=== PATIENT | male | born 1945 | race Caucasian/White ===

== ENCOUNTER 2016-12-23 11:35 | Inpatient (IN) | payer MEDICARE, OTHER, BC ==
[2016-12-23] MEDS ORDERED: Sodium Chloride 0.9% 500 ML IV ONE (12:02)
[2016-12-23] MEDS ORDERED: HYDROmorphone 0.5 MG/0.5 ML Syringe IVPUSH ONE ×2 (12:02→13:02)
--- NOTE | 2016-12-23 12:09 | EDM.PDOC ---
ED HPI GENERAL MEDICAL PROBLEM - General Chief Complaint: Lower Extremity Injury/Pain Stated Complaint: [facility] Time Seen by Provider: 12/23/16 11:40 Source of Information: Reports: Patient, RN Notes Reviewed - History of Present Illness INITIAL COMMENTS - FREE TEXT/NARRATIVE: 71-year-old gentleman has been transferred here from [facility] for evaluation and treatment of fractured right hip. He does have history of "drop foot" left lower extremity. He states the foot caught on some carpet and he fell landing on his right hip and fracturing his right hip. X-rays at the [facility] did show right femoral neck fracture. He does have history of COPD. He does continue to smoke. He does have some history of degenerative spine disease and does have chronic low back pain. He denies history for known high blood pressure, diabetes or coronary artery disease. He was given some morphine for the pain prior to transport. That is wearing off. He is starting to have more pain primarily in the right groin area. The pain is much worse with any motion of the right lower extremity. Treatments FLIGHT DATA TECHNICIAN: Reports: IV/IO, Other (see below) Other Treatments FLIGHT DATA TECHNICIAN: morphine, zofran right hip Pain Score (Numeric/FACES): 8 - Related Data Allergies Allergy/AdvReac Type Severity Reaction Status Date / Time nitrofurantoin Allergy Rash Verified 12/23/16 11:46 [From Macrobid] gabapentin AdvReac Disorientat Verified 12/24/16 07:17 ion Home Meds: Home Meds Acetaminophen [Tylenol Extra Strength] 2 tab PO DAILY PRN 12/23/16 [History] Albuterol [Ventolin HFA] 2 puff INH QID PRN 12/23/16 [History] Aspirin 2 tab PO DAILY 12/23/16 [History] Calcium Carbonate/Vitamin D3 [Calcium 600 + Vit D 200] 2 cap PO DAILY 12/23/16 [ History] DULoxetine HCl [Cymbalta] 90 mg PO DAILY 12/23/16 [History] Hydrocort/Neomycin/Polymyxin B [Cortisporin Otic Soln] 3 drop EYEBOTH TID PRN [History] Magnesium Oxide 500 mg PO DAILY 12/23/16 [History] Multivitamin [Klt-Geahvm-Mvggs] 1 tab PO DAILY 12/23/16 [History] Naproxen Sodium [Aleve] 2 tab PO DAILY PRN 12/23/16 [History] Silver Sulfadiazine [Silvadene 1% Cream 20 GM] 1 applic TOP BID 12/23/16 [ History] Simvastatin [Zocor] 20 mg PO DAILY 12/23/16 [History] Spironolactone [Aldactone] 1 tab PO DAILY 12/23/16 [History] Tamsulosin HCl 1 cap PO DAILY 12/23/16 [History] Triamcinolone Acetonide [Triamcinolone Acetonide 0.1% Crm] 1 applic TOP BID PRN 12/23/16 [History] Umeclidinium Brm/Vilanterol Tr [Anoro Ellipta 62.5-25 Mcg INH] 1 puff INH DAILY 12/23/16 [History] oxyCODONE 1 tab PO ASDIRECTED 12/23/16 [History] traMADol HCl [Tramadol HCl ER] 300 mg PO BEDTIME 12/23/16 [History] Past Medical History HEENT History: Reports: Impaired Vision Respiratory History: Reports: COPD Musculoskeletal History: Reports: Back Pain, Chronic, Osteoarthritis, Osteoporosis - Past Surgical History Musculoskeletal Surgical History: Reports: Other (See Below) Other Musculoskeletal Surgeries/Procedures:: back surgeries, "lazy foot" Social & Family History - Family History Family Medical History: Noncontributory - Tobacco Use Smoking Status *Q: Current Every Day Smoker Years of Tobacco use: 45 Packs/Tins Daily: 1.5 - Caffeine Use Caffeine Use: Reports: Coffee - Recreational Drug Use Recreational Drug Use: No Review of Systems - Review of Systems Review Of Systems: See Below Constitutional: Reports: No Symptoms Eyes: Reports: No Symptoms Mouth/Throat: Reports: No Symptoms Respiratory: Reports: Cough (Chronic). Denies: Shortness of Breath, Wheezing, Pleuritic Chest Pain Cardiovascular: Denies: Chest Pain GI/Abdominal: Denies: Abdominal Pain, Nausea Musculoskeletal: Reports: Joint Pain (Right hip) Skin: Reports: No Symptoms Neurological: Denies: Numbness, Tingling, Weakness ED EXAM, GENERAL - Physical Exam Exam: See Below General Appearance: Alert, Mild Distress Eye Exam: Bilateral Eye: PERRL Throat/Mouth: Normal Inspection, Normal Oropharynx Head: Atraumatic. No: Facial Swelling Neck: Supple, Full Range of Motion Respiratory/Chest: No Respiratory Distress, Lungs Clear, Normal Breath Sounds Cardiovascular: Regular Rate, Rhythm GI/Abdominal: Soft, Non-Tender Back Exam: No: CVA Tenderness (L), CVA Tenderness (R) Extremities: Other (He does have mild tenderness of the right lateral hip, pelvis is nontender, his leg does show some mild rotation, is careful not to be moving leg). No: Pedal Edema Neurological: Alert, Oriented, No Motor/Sensory Deficits Skin Exam: Warm, Dry, Other (Distal extremities do show some signs of stasis dermatitis) Course - Vital Signs Last Recorded V/S: Last Vital Signs Temp 97.5 F 12/25/16 03:49 Pulse 79 12/24/16 10:31 Resp 14 12/25/16 06:52 BP 123/63 12/25/16 03:49 Pulse Ox 97 12/25/16 03:49 - Orders/Labs/Meds Orders: Medication Orders Albuterol (Proventil Hfa) 0 gm INH QID PRN PRN Reason: Dyspnea Last Admin: 12/24/16 06:46 Dose: 2 puff Admin: 12/23/16 21:09 Dose: 2 puff Albuterol/Ipratropium (Duoneb 3.0-0.5 Mg/3 Ml) 2.5 ml NEB QID PRN PRN Reason: Shortness of Breath Aspirin (Ecotrin) 325 mg PO BID [facility] Last Admin: 12/24/16 20:19 Dose: 325 mg Admin: 12/24/16 10:37 Dose: 325 mg Bisacodyl (Dulcolax) 5 mg PO DAILY PRN PRN Reason: Constipation Docusate Sodium (Colace) 100 mg PO BID [facility] Last Admin: 12/24/16 20:19 Dose: 100 mg Admin: 12/24/16 10:31 Dose: Duloxetine HCl (Cymbalta) 90 mg PO DAILY [facility] Last Admin: 12/24/16 10:30 Dose: 90 mg Famotidine (Pepcid) 20 mg PO BID [facility] Last Admin: 12/24/16 20:19 Dose: 20 mg Admin: 12/24/16 10:31 Dose: Hydromorphone HCl (Dilaudid) 1 mg IVPUSH Q4H PRN PRN Reason: Pain (severe 7-10) Last Admin: 12/23/16 20:56 Dose: 1 mg Admin: 12/23/16 16:55 Dose: 1 mg Cefazolin Sodium/Dextrose 2 gm (/ Premix) 50 mls @ 100 mls/hr IV Q8H [facility] Stop: 12/25/16 07:29 Last Admin: 12/25/16 06:06 Dose: 100 mls/hr Infusion: 12/25/16 00:21 Dose: 100 mls/hr Admin: 12/24/16 23:51 Dose: 100 mls/hr Infusion: 12/24/16 15:17 Dose: 100 mls/hr Admin: 12/24/16 14:47 Dose: 100 mls/hr Magnesium Hydroxide (Milk Of Magnesia) 30 ml PO BID PRN PRN Reason: Constipation Miscellaneous Information (Remove Patch) 0 ea TRDERM DAILY [facility] Last Admin: 12/24/16 10:31 Dose: 1 ea Multivitamins (Thera) 1 each PO WITHBREAKFAST [facility] Last Admin: 12/25/16 06:06 Dose: 1 each Neomycin/Polymyxin/Bacitr/Hydrocort (Cortisporin Ophth Oint) 0 gm EYEBOTH TID PRN PRN Reason: Other Nicotine (Habitrol) 21 mg TRDERM DAILY [facility] Last Admin: 12/24/16 10:30 Dose: 21 mg Admin: 12/23/16 18:41 Dose: 21 mg Ondansetron HCl (Zofran) 4 mg IVPUSH Q6H PRN PRN Reason: Nausea/Vomiting Oxycodone/Acetaminophen (Percocet 325-5 Mg) 1 - 2 tab PO Q4H PRN PRN Reason: Pain Last Admin: 12/25/16 06:05 Dose: 2 tab Admin: 12/24/16 23:50 Dose: 2 tab Admin: 12/24/16 18:36 Dose: 2 tab Admin: 12/24/16 14:48 Dose: 2 tab Admin: 12/24/16 10:31 Dose: 2 tab Admin: 12/24/16 04:36 Dose: 2 tab Admin: 12/23/16 23:48 Dose: 2 tab Senna (Senna) 8.6 mg PO BID PRN PRN Reason: Constipation Simvastatin (Zocor) 20 mg PO BEDTIME [facility] Last Admin: 12/24/16 20:19 Dose: 20 mg Spironolactone (Aldactone) 25 mg PO DAILY [facility] Last Admin: 12/24/16 10:30 Dose: 25 mg Tamsulosin HCl (Flomax) 0.4 mg PO DAILY [facility] Last Admin: 12/24/16 10:30 Dose: 0.4 mg Meds: Medications Generic Name Dose Route Start Last Admin Trade Name Freq PRN Reason Stop Dose Admin Albuterol 0 gm 12/23/16 15:16 12/24/16 06:46 Proventil Hfa INH 2 puff QID PRN Administration Dyspnea Albuterol/Ipratropium 2.5 ml 12/23/16 17:59 Duoneb 3.0-0.5 Mg/3 Ml NEB QID PRN Shortness of Breath Aspirin 325 mg 12/24/16 10:19 12/24/16 20:19 Ecotrin PO 325 mg BID ROLY Administration Bisacodyl 5 mg 12/24/16 09:00 Dulcolax PO DAILY PRN Constipation Docusate Sodium 100 mg 12/24/16 09:00 12/24/16 20:19 Colace PO 100 mg BID ROLY Administration Duloxetine HCl 90 mg 12/24/16 09:00 12/24/16 10:30 Cymbalta PO 90 mg DAILY ROLY Administration Famotidine 20 mg 12/24/16 09:00 12/24/16 20:19 Pepcid PO 20 mg BID ROLY Administration Hydromorphone HCl 1 mg 12/23/16 16:04 12/23/16 20:56 Dilaudid IVPUSH 1 mg Q4H PRN Administration Pain (severe 7-10) Cefazolin Sodium/Dextrose 2 gm 50 mls @ 100 mls/hr 12/24/16 15:00 12/25/16 06 :06 / Premix IV 12/25/16 07:29 100 mls/hr Q8H ROLY Administration Magnesium Hydroxide 30 ml 12/24/16 09:00 Milk Of Magnesia PO BID PRN Constipation Miscellaneous Information 0 ea 12/24/16 09:00 12/24/16 10:31 Remove Patch TRDERM 1 ea DAILY ROLY Administration Multivitamins 1 each 12/25/16 07:00 12/25/16 06:06 Thera PO 1 each WITHBREAKFAST ROLY Administration Neomycin/Polymyxin/Bacitr/Hydrocort 0 gm 12/23/16 15:16 Cortisporin Ophth Oint EYEBOTH TID PRN Other Nicotine 21 mg 12/23/16 18:00 12/24/16 10:30 Habitrol TRDERM 21 mg DAILY ROLY Administration Ondansetron HCl 4 mg 12/24/16 09:00 Zofran IVPUSH Q6H PRN Nausea/Vomiting Oxycodone/Acetaminophen 1 - 2 tab 12/23/16 21:27 12/25/16 06:05 Percocet 325-5 Mg PO 2 tab Q4H PRN Administration Pain Senna 8.6 mg 12/24/16 09:00 Senna PO BID PRN Constipation Simvastatin 20 mg 12/24/16 21:00 12/24/16 20:19 Zocor PO 20 mg BEDTIME ROLY Administration Spironolactone 25 mg 12/24/16 09:00 12/24/16 10:30 Aldactone PO 25 mg DAILY ROLY Administration Tamsulosin HCl 0.4 mg 12/24/16 09:00 12/24/16 10:30 Flomax PO 0.4 mg DAILY ROLY Administration Discontinued Medications Generic Name Dose Route Start Last Admin Trade Name Freq PRN Reason Stop Dose Admin Hydrocodone Bitart/Acetaminophen 1 tab 12/23/16 16:04 [place]ille 325-5 Mg PO Q4H PRN Pain (moderate 4-6) Albuterol/Ipratropium 3 ml 12/23/16 12:39 12/23/16 12:51 Duoneb 3.0-0.5 Mg/3 Ml NEB 12/23/16 12:40 3 ml ONETIME ONE Administration Bupivacaine HCl Confirm 12/24/16 05:45 Marcaine 0.25% Administered 12/24/16 05:46 Dose 30 ml .ROUTE .STK-MED ONE Bupivacaine HCl Confirm 12/24/16 07:37 12/24/16 08:28 Marcaine 0.25% Administered 12/24/16 07:38 30 ml Dose Administration 30 ml .ROUTE .STK-MED ONE Cefazolin Sodium Confirm 12/24/16 05:45 12/24/16 08:21 Ancef Administered 12/24/16 05:46 2 gm Dose Administration 2 gm .ROUTE .STK-MED ONE Cefazolin Sodium Confirm 12/24/16 06:29 Ancef Administered 12/24/16 06:30 Dose 2 gm .ROUTE .STK-MED ONE Morphine Sulfate 8 mg/ 0 mg 12/24/16 07:20 12/24/16 10:32 Epinephrine HCl 0.3 mg/ .XX 12/24/16 07:21 Not Given Cefuroxime Sodium 750 mg/ ONETIME ONE Ketorolac Tromethamine 30 mg/ Sodium Chloride 27.9 ml Diphenhydramine HCl 25 mg 12/24/16 08:01 Benadryl IVPUSH 12/24/16 12:00 Q6H PRN Pruritis Enoxaparin Sodium 40 mg 12/23/16 20:00 12/24/16 20:19 Lovenox SUBCUT 12/24/16 23:59 40 mg DAILY@2000 ROLY Administration Fentanyl Confirm 12/24/16 06:21 Sublimaze Administered 12/24/16 06:22 Dose 100 mcg .ROUTE .STK-MED ONE Fentanyl 50 mcg 12/24/16 09:24 Sublimaze IVPUSH 12/24/16 09:40 Q5M PRN Pain Hydromorphone HCl 0.5 mg 12/23/16 12:02 12/23/16 12:12 Dilaudid IVPUSH 12/23/16 12:03 0.5 mg ONETIME ONE Administration Hydromorphone HCl 0.5 mg 12/23/16 13:02 12/23/16 13:10 Dilaudid IVPUSH 12/23/16 13:03 0.5 mg ONETIME ONE Administration Sodium Chloride 500 mls @ 999 mls/hr 12/23/16 12:02 12/23/16 12:11 Normal Saline IV 12/23/16 12:32 999 mls/hr .BOLUS ONE Administration Sodium Chloride 1,000 mls @ 150 mls/hr 12/23/16 13:00 12/23/16 23:49 Normal Saline IV 150 mls/hr ASDIRECTED ROLY Administration Lidocaine HCl Confirm 12/24/16 06:29 Xylocaine-Mpf 1% Administered 12/24/16 06:30 Dose 2 mls @ as directed .ROUTE .STK-MED ONE Lactated Ringer's Confirm 12/24/16 08:59 Ringers, Lactated Administered 12/24/16 09:00 Dose 1,000 mls @ as directed .ROUTE .STK-MED ONE Lactated Ringer's Confirm 12/24/16 08:59 Ringers, Lactated Administered 12/24/16 09:00 Dose 1,000 mls @ as directed .ROUTE .STK-MED ONE Iodine Confirm 12/24/16 05:45 12/24/16 08:18 Iodine 2% Mild Tincture Administered 12/24/16 05:46 18 ml Dose Administration 30 ml .ROUTE .STK-MED ONE Ketamine HCl Confirm 12/24/16 06:21 Ketalar Administered 12/24/16 06:22 Dose 500 mg .ROUTE .STK-MED ONE Meperidine HCl 12.5 mg 12/24/16 08:01 Demerol IVPUSH 12/24/16 12:00 ONETIME PRN Shivering Midazolam HCl Confirm 12/24/16 06:21 Versed 1 Mg/Ml Administered 12/24/16 06:22 Dose 2 mg .ROUTE .STK-MED ONE Morphine Sulfate Confirm 12/24/16 06:33 Duramorph Pf Administered 12/24/16 06:34 Dose 10 mg .ROUTE .STK-MED ONE Naloxone HCl 0.1 mg 12/24/16 09:00 Narcan IVPUSH 12/24/16 09:16 Q5M PRN Oversedation Ondansetron HCl Confirm 12/24/16 06:29 Zofran Administered 12/24/16 06:30 Dose 4 mg .ROUTE .STK-MED ONE Ondansetron HCl 4 mg 12/24/16 08:01 Zofran IVPUSH 12/24/16 12:00 ONETIME PRN Nausea/Vomiting Oxycodone HCl 10 mg 12/23/16 20:37 12/23/16 20:55 Oxycodone PO 12/23/16 20:38 10 mg ONETIME ONE Administration Phenylephrine HCl Confirm 12/24/16 08:08 Phenylephrine In Ns 100 Mcg/Ml Administered 12/24/16 08:09 Dose 1 mg .ROUTE .STK-MED ONE Pneumococcal Polyvalent Vaccine 0.5 ml 12/25/16 06:46 Pneumovax 23 IM 12/25/16 06:47 .ONCE ONE Propofol Confirm 12/24/16 06:21 Diprivan 20 Ml Administered 12/24/16 06:22 Dose 400 mg .ROUTE .STK-MED ONE Simvastatin 20 mg 12/24/16 09:00 Zocor PO DAILY ROLY Tranexamic Acid Confirm 12/24/16 05:45 12/24/16 08:38 Cyklokapron Administered 12/24/16 05:46 1,000 mg Dose Administration 1,000 mg .ROUTE .[facility] ONE - Re-Assessments/Exams Free Text/Narrative Re-Assessment/Exam: 12/23/16 12:10 X-rays of hip taken at [facility] are visualized showing fracture of the right femoral neck, mild angulation present 12/23/16 12:46. Patient arrived with sats of 88% room air. With oxygen 2 L sats are running around 94%. Chest x-ray does show hyperinflation some mild fibrotic changes. Have ordered a DuoNeb treatment for him. 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 Dr. Smalls, Orthopedist will be doing his surgery Departure - Departure Time of Disposition: 12:45 Disposition: Admitted As Inpatient 65 Condition: Serious Clinical Impression: Fracture of neck of femur, hip COPD (chronic obstructive pulmonary disease) Qualifiers: COPD type: emphysema Emphysema type: panlobular Qualified Code(s): J43.1 - Panlobular emphysema - Discharge Information ED Communication - Discussed Case With (1) Discussed Case With (1): Admitting Provider (Dr Velazco, decision to admit at about 12:45)
[2016-12-23] MEDS ORDERED: Albuterol/Ipratropium 3.0-0.5 MG/3 ML Neb Soln NEB ONE (12:39)
--- NOTE | 2016-12-23 13:40 | PCM.PREANE ---
Preanesthetic Assessment - Procedure Proposed Procedure: Right Hip Replacement - Anesthesia/Transfusion/Family Hx Anesthesia History: Prior Anesthesia Without Reaction Family History of Anesthesia Reaction: No - Review of Systems General: No Symptoms Pulmonary: Shortness of Breath (only with exertion) Cardiovascular: Dyspnea on Exertion Gastrointestinal: Diarrhea (states normally has this on occasional basis) Neurological: Numbness (Left foot), Difficulty Walking (Left foot foot drop), Weakness (Left foot) - Physical Assessment NPO Status Date: 12/24/16 NPO Status Time: 00:00 O2 Sat by Pulse Oximetry: 88 Respiratory Rate: 18 Vital Signs: Last Vital Signs Temp 36.7 C 12/23/16 11:40 Pulse 99 12/23/16 11:40 Resp 18 12/23/16 11:40 BP 163/83 H 12/23/16 11:40 Pulse Ox 93 L 12/23/16 12:52 Height: 1.85 m Weight: 74.389 kg ASA Class: 2 Mental Status: Alert & Oriented x3 Airway Class: Mallampati = 2 Dentition: Reports: Dentures (upper), Partial (lower front), [place](s) Thyro-Mental Finger Breadths: 3 Mouth Opening Finger Breadths: 3 ROM/Head Extension: Full Lungs: Clear to auscultation, Normal respiratory effort Cardiovascular: Regular Rate, Regular Rhythm, No Murmurs - Lab Values: Labs from [place] 12/23/16 PTT -23 INR - 1.1 Na - 135 K - 4.5 CL - 100 CO2 - 26 BUN - 26 Cr - 1.03 Glu - 121 WBC - 9 Hgb - 13.6 HCT - 42.3 PLT - 178 - Imaging/EKG Impressions: EKG Sinus Rhythm, old anterior infarct - Allergies Allergies/Adverse Reactions: Allergies Allergy/AdvReac Type Severity Reaction Status Date / Time gabapentin Allergy Disorientat Verified 12/23/16 11:46 ion nitrofurantoin Allergy Rash Verified 12/23/16 11:46 [From Macrobid] - Blood Blood Available: No - Acknowledgements Anesthesia Type Planned: Spinal Pt an Appropriate Candidate for the Planned Anesthesia: Yes Alternatives and Risks of Anesthesia Discussed w Pt/Guardian: Yes Pt/Guardian Understands and Agrees with Anesthesia Plan: Yes PreAnesthesia Questionnaire HEENT History: Reports: Impaired Vision Cardiovascular History: Reports: 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), Heart Murmur (Aortic Ejection murmur), High Cholesterol, Hypertension, PVD Respiratory History: Reports: COPD Other Respiratory History: Lung Nodule Gastrointestinal History: Reports: Irritable Bowel Syndrome Genitourinary History: Reports: Other (See Below) (male hypogonadism) Musculoskeletal History: Reports: Back Pain, Chronic, Fracture (vertebral compression fxs T4,T7,L1,L2,L3), Osteoarthritis, Osteoporosis Neurological History: Reports: Neuropathy, Peripheral (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) Other Neuro History: Neurodermatitis bilateral hands/forearms Psychiatric History: Reports: Depression Dermatologic History: Reports: Venous Stasis Dermatitis - Past Surgical History HEENT Surgical History: Reports: Tonsillectomy GI Surgical History: Reports: Appendectomy Musculoskeletal Surgical History: Reports: Other (See Below) (Kyphoplasty and vertebroplasty) Other Musculoskeletal Surgeries/Procedures:: back surgeries, "lazy foot" - SUBSTANCE USE Smoking Status *Q: Current Every Day Smoker (1.5 ppd x >40 yrs) Tobacco Use Within Last Twelve Months: Cigarettes Days Per Week of Alcohol Use: 0 Recreational Drug Use History: No - HOME MEDS Home Medications: Home Meds Acetaminophen [Tylenol Extra Strength] 2 tab PO DAILY PRN 12/23/16 [History] Albuterol [Ventolin HFA] 2 puff INH QID PRN 12/23/16 [History] Aspirin 2 tab PO DAILY 12/23/16 [History] Calcium Carbonate/Vitamin D3 [Calcium 600 + Vit D 200] 2 cap PO DAILY 12/23/16 [ History] DULoxetine HCl [Cymbalta] 90 mg PO DAILY 12/23/16 [History] Hydrocort/Neomycin/Polymyxin B [Cortisporin Otic Soln] 3 drop EYEBOTH TID PRN [History] Magnesium Oxide 500 mg PO DAILY 12/23/16 [History] Multivitamin [Pxt-Mplmvb-Cmhyj] 1 tab PO DAILY 12/23/16 [History] Naproxen Sodium [Aleve] 2 tab PO DAILY PRN 12/23/16 [History] Silver Sulfadiazine [Silvadene 1% Cream 20 GM] 1 applic TOP BID 12/23/16 [ History] Simvastatin [Zocor] 20 mg PO DAILY 12/23/16 [History] Spironolactone [Aldactone] 1 tab PO DAILY 12/23/16 [History] Tamsulosin HCl 1 cap PO DAILY 12/23/16 [History] Triamcinolone Acetonide [Triamcinolone Acetonide 0.1% Crm] 1 applic TOP BID PRN 12/23/16 [History] Umeclidinium Brm/Vilanterol Tr [Anoro Ellipta 62.5-25 Mcg INH] 1 puff INH DAILY 12/23/16 [History] oxyCODONE 1 tab PO ASDIRECTED 12/23/16 [History] traMADol HCl [Tramadol HCl ER] 300 mg PO BEDTIME 12/23/16 [History] - CURRENT (IN HOUSE) MEDS Current Meds: Current Medications Sodium Chloride (Normal Saline) 1,000 mls @ 150 mls/hr IV ASDIRECTED ROLY Discontinued Medications Albuterol/Ipratropium (Duoneb 3.0-0.5 Mg/3 Ml) 3 ml NEB ONETIME ONE Stop: 12/23/16 12:40 Last Admin: 12/23/16 12:51 Dose: 3 ml Hydromorphone HCl (Dilaudid) 0.5 mg IVPUSH ONETIME ONE Stop: 12/23/16 12:03 Last Admin: 12/23/16 12:12 Dose: 0.5 mg Hydromorphone HCl (Dilaudid) 0.5 mg IVPUSH ONETIME ONE Stop: 12/23/16 13:03 Last Admin: 12/23/16 13:10 Dose: 0.5 mg Sodium Chloride (Normal Saline) 500 mls @ 999 mls/hr IV .BOLUS ONE Stop: 12/23/16 12:32 Last Admin: 12/23/16 12:11 Dose: 999 mls/hr
--- NOTE | 2016-12-23 14:29 | PCM.HP ---
H&P History of Present Illness - General Date of Service: 12/23/16 Source of Information: Patient, Provider History Limitations: Reports: No Limitations - History of Present Illness Initial Comments - Free Text/Narative: 71 year old male admitted to the hospitalist service, pre op for right hip fracture. He has left sided foot drop and apparently fell on the day od admission.Hip XRAY at [place] ED documented a right femoral neck fracture. At the time of evaluation, he has minimal pain. Onset of Symptoms: Reports: Sudden Symptom Onset Date: 12/23/16 Duration of Symptoms: Reports: Hour(s): Location: Reports: Lower Extremity, Right Quality: Reports: Ache Severity: Moderate Improves with: Reports: Medication Worsens with: Reports: None Context: Reports: Exertion Associated Symptoms: Reports: No Other Symptoms right hip Pain Score (Numeric/FACES): 8 - Related Data Allergies/Adverse Reactions: Allergies Allergy/AdvReac Type Severity Reaction Status Date / Time gabapentin Allergy Disorientat Verified 12/23/16 11:46 ion nitrofurantoin Allergy Rash Verified 12/23/16 11:46 [From Macrobid] Home Medications: Home Meds Acetaminophen [Tylenol Extra Strength] 2 tab PO DAILY PRN 12/23/16 [History] Albuterol [Ventolin HFA] 2 puff INH QID PRN 12/23/16 [History] Aspirin 2 tab PO DAILY 12/23/16 [History] Calcium Carbonate/Vitamin D3 [Calcium 600 + Vit D 200] 2 cap PO DAILY 12/23/16 [ History] DULoxetine HCl [Cymbalta] 90 mg PO DAILY 12/23/16 [History] Hydrocort/Neomycin/Polymyxin B [Cortisporin Otic Soln] 3 drop EYEBOTH TID PRN [History] Magnesium Oxide 500 mg PO DAILY 12/23/16 [History] Multivitamin [Fzg-Pmaltr-Xvttx] 1 tab PO DAILY 12/23/16 [History] Naproxen Sodium [Aleve] 2 tab PO DAILY PRN 12/23/16 [History] Silver Sulfadiazine [Silvadene 1% Cream 20 GM] 1 applic TOP BID 12/23/16 [ History] Simvastatin [Zocor] 20 mg PO DAILY 12/23/16 [History] Spironolactone [Aldactone] 1 tab PO DAILY 12/23/16 [History] Tamsulosin HCl 1 cap PO DAILY 12/23/16 [History] Triamcinolone Acetonide [Triamcinolone Acetonide 0.1% Crm] 1 applic TOP BID PRN 12/23/16 [History] Umeclidinium Brm/Vilanterol Tr [Anoro Ellipta 62.5-25 Mcg INH] 1 puff INH DAILY 12/23/16 [History] oxyCODONE 1 tab PO ASDIRECTED 12/23/16 [History] traMADol HCl [Tramadol HCl ER] 300 mg PO BEDTIME 12/23/16 [History] Past Medical History HEENT History: Reports: Impaired Vision Cardiovascular History: Reports: 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), Heart Murmur (Aortic Ejection murmur), High Cholesterol, Hypertension, PVD Respiratory History: Reports: COPD Other Respiratory History: Lung Nodule Gastrointestinal History: Reports: Irritable Bowel Syndrome Genitourinary History: Reports: Other (See Below) (male hypogonadism) Musculoskeletal History: Reports: Back Pain, Chronic, Fracture (vertebral compression fxs T4,T7,L1,L2,L3), Osteoarthritis, Osteoporosis Neurological History: Reports: Neuropathy, Peripheral Other Neuro History: Neurodermatitis bilateral hands/forearms - Past Surgical History Musculoskeletal Surgical History: Reports: Other (See Below) Other Musculoskeletal Surgeries/Procedures:: back surgeries, "lazy foot" Social & Family History - Family History Family Medical History: Noncontributory - Tobacco Use Smoking Status *Q: Current Every Day Smoker Years of Tobacco use: 45 Packs/Tins Daily: 1.5 - Caffeine Use Caffeine Use: Reports: Coffee - Recreational Drug Use Recreational Drug Use: No H&P Review of Systems - Review of Systems: Review Of Systems: See Below General: Reports: No Symptoms HEENT: Reports: No Symptoms Pulmonary: Reports: No Symptoms Cardiovascular: Reports: No Symptoms Gastrointestinal: Reports: No Symptoms Genitourinary: Reports: No Symptoms Musculoskeletal: Reports: Leg Pain (right hip) Skin: Reports: No Symptoms Psychiatric: Reports: No Symptoms Neurological: Reports: No Symptoms Hematologic/Lymphatic: Reports: No Symptoms Immunologic: Reports: No Symptoms Exam - Exam Exam: See Below - Vital Signs Vital Signs: Last Vital Signs Temp 36.7 C 12/23/16 11:40 Pulse 99 12/23/16 11:40 Resp 18 12/23/16 14:24 BP 163/83 H 12/23/16 11:40 Pulse Ox 88 L 12/23/16 14:24 Weight: 74.389 kg - Exam Quality Assessment: DVT Prophylaxis General: Alert, Oriented, Cooperative HEENT: Conjunctiva Clear, EACs Clear, EOMI, Nares Patent, Normal Nasal Septum, Pupils Equal, Pupils Reactive Neck: Supple, Trachea Midline Lungs: Normal Respiratory Effort Cardiovascular: Regular Rate, Regular Rhythm Abdomen: Normal Bowel Sounds, Soft (Male) Exam: Deferred Rectal (Males) Exam: Deferred Back Exam: Normal Inspection Extremities: Normal Pulses Skin: Warm Neurological: Cranial Nerves Intact Neuro Extensive - Mental Status: Alert, Oriented x3, Normal Mood/Affect, Normal Cognition, Memory Intact Neuro Extensive - Motor, Sensory, Reflexes: CN II-XII Intact Psychiatric: Alert, Normal Affect, Normal Mood - Patient Data Result Diagrams: 12/23/16 18:00 12/23/16 18:00 *Q Meaningful Use (ADM) - VTE *Q VTE Criteria *Q: - Stroke *Q Stroke Criteria *Q: - AMI *Q AMI Criteria *Q: - Problem List (1) Foot drop, left foot SNOMED Code(s): 8003646, 32592104 ICD Code: M21.372 - FOOT DROP, LEFT FOOT Status: Acute Current Visit: Yes (2) COPD (chronic obstructive pulmonary disease) SNOMED Code(s): 55562307 ICD Code: J44.9 - CHRONIC OBSTRUCTIVE PULMONARY DISEASE, UNSPECIFIED Status : Acute Current Visit: Yes Qualifiers: COPD type: emphysema Emphysema type: panlobular Qualified Code(s): J43.1 - Panlobular emphysema (3) Fracture of neck of femur, hip SNOMED Code(s): 0634895 ICD Code: S72.009A - FRACTURE OF UNSP PART OF NECK OF UNSP FEMUR, INIT Status: Acute Current Visit: Yes Problem List Initiated/Reviewed/Updated: Yes Orders Last 24hrs: Medication Orders Sodium Chloride (Normal Saline) 1,000 mls @ 150 mls/hr IV ASDIRECTED [facility] Assessment/Plan Comment:: Impression: COPD patient without documented CAD, able to do at least 4 METS; may proceed to surgery Right hip fracture, s/p Fall Plan: Pain mgt Ortho to arrange time for procedure Daily labs Home meds SW/PT/OT DVT/GI prophylaxis
[2016-12-23] MEDS ORDERED: Bacitracin/Hydrocortisone/Neomycin/Polymyxin Ophth Oint 3.5 GM Tube EYEBOTH PRN (15:16)
[2016-12-23] MEDS ORDERED: Acetaminophen/HYDROcodone 325-5 MG Tab PO PRN (16:04)
[2016-12-23] MEDS: HYDROmorphone 1 MG/ML Syringe IVPUSH PRN ×2 (16:55→20:56)
[2016-12-23] MEDS: Sodium Chloride 0.9% 1,000 ML IV SCH ×2 (16:55→23:49)
[2016-12-23] MEDS ORDERED: Albuterol/Ipratropium 3.0-0.5 MG/3 ML Neb Soln NEB PRN (17:59)
[2016-12-23] MEDS: Nicotine 21 MG/24 Hr Patch TRDERM SCH (18:41)
[2016-12-23] MEDS: Enoxaparin 40 MG/0.4 ML Syringe SUBCUT SCH (19:35)
[2016-12-23] MEDS ORDERED: oxyCODONE 5 MG Tab PO ONE (20:37)
[2016-12-23] MEDS: Albuterol 6.7 GM Inhaler INH PRN (21:09)
[2016-12-23] MEDS: Acetaminophen/oxyCODONE 325-5 MG Tab PO PRN (23:48)
[2016-12-24] MEDS: Acetaminophen/oxyCODONE 325-5 MG Tab PO PRN ×5 (04:36→23:50)
[2016-12-24] MEDS ORDERED: Bupivacaine 0.25% 30 ML SDV ONE (05:45)
[2016-12-24] MEDS ORDERED: Ketamine 500 mg/10 ML MDV ONE (06:21)
[2016-12-24] MEDS ORDERED: Propofol 200 MG/20 ML SDV ONE (06:21)
[2016-12-24] MEDS ORDERED: Midazolam 1 MG/ML 2 ML SDV ONE (06:21)
[2016-12-24] MEDS ORDERED: fentaNYL 100 MCG/2 ML SDV ONE (06:21)
[2016-12-24] MEDS ORDERED: Ondansetron 4 MG/2 ML SDV ONE (06:29)
[2016-12-24] MEDS ORDERED: Lidocaine 1% 2 ML ONE (06:29)
[2016-12-24] MEDS ORDERED: ceFAZolin 1 GM Vial ONE (06:29)
[2016-12-24] MEDS ORDERED: Morphine PF 10 MG/10 ML SDV ONE (06:33)
[2016-12-24] MEDS: Albuterol 6.7 GM Inhaler INH PRN (06:46)
--- NOTE | 2016-12-24 07:50 | CR ---
Chest: Frontal view of the chest was obtained. Comparison: No previous study. Heart size and mediastinum are normal. Lung markings are diffusely increased. Lungs otherwise are clear but slightly hyperinflated. Previous vertebroplasty noted within the mid thoracic spine. Bony structures are osteopenic. Impression: 1. Probable emphysematous change. 2. Lung markings diffusely increased. Without old studies, uncertain as to the age of these lung markings but they are most likely chronic. Diagnostic code #2
[2016-12-24] MEDS: Iodine/Sodium Iodide 2% Tincture 30 ML Bottle ONE ×2 (07:57→08:18)
[2016-12-24] MEDS: ceFAZolin 1 GM Vial ONE ×2 (07:58→08:21)
[2016-12-24] MEDS: Morphine 8 MG, EPINEPHrine 0.3 MG, Cefuroxime 750 MG, Ketorolac 30 MG, Sodium Chloride ... ONE ×15 (07:58→10:32)
[2016-12-24] MEDS: Bupivacaine 0.25% 30 ML SDV ONE ×2 (07:59→08:28)
[2016-12-24] MEDS ORDERED: Ondansetron 4 MG/2 ML SDV IVPUSH PRN ×2 (08:01→09:00)
[2016-12-24] MEDS ORDERED: Meperidine PF 50 MG/ML Syringe IVPUSH PRN (08:01)
[2016-12-24] MEDS ORDERED: diphenhydrAMINE 50 MG/ML SDV IVPUSH PRN (08:01)
[2016-12-24] MEDS ORDERED: Phenylephrine/Normal Saline 100 MCG/ML 10 ML Syringe ONE (08:08)
--- NOTE | 2016-12-24 08:27 | PCM.CONS ---
H&P History of Present Illness - General Date of Service: 12/23/16 Admit Problem/Dx: Admission Diagnosis/Problem Admission Diagnosis/Problem Fracture of bone Source of Information: Patient, Provider - History of Present Illness Initial Comments - Free Text/Narative: This is a 71 year old gentleman who fell at this home while walking due to foot drop on the left lower extremity which is long standing. Patient subsequently had right hip pain and was unable to bear weight on the right leg. He was taken to the [place] ER where he was found to have a right femoral neck fracture. We were contacted and the patient was transferred to [place] for admission under the hospitalist. Patient denies any previous right hip pain but does state he suffers from chronic low back pain and back problems. He uses ambulatory assistive devices at times for ambulation. He lives independently before this fall. He denies any other pain or injury. right hip Pain Score (Numeric/FACES): 8 - Related Data Allergies/Adverse Reactions: Allergies Allergy/AdvReac Type Severity Reaction Status Date / Time nitrofurantoin Allergy Rash Verified 12/23/16 11:46 [From Macrobid] gabapentin AdvReac Disorientat Verified 12/24/16 07:17 ion Home Medications: Home Meds Acetaminophen [Tylenol Extra Strength] 2 tab PO DAILY PRN 12/23/16 [History] Albuterol [Ventolin HFA] 2 puff INH QID PRN 12/23/16 [History] Aspirin 2 tab PO DAILY 12/23/16 [History] Calcium Carbonate/Vitamin D3 [Calcium 600 + Vit D 200] 2 cap PO DAILY 12/23/16 [ History] DULoxetine HCl [Cymbalta] 90 mg PO DAILY 12/23/16 [History] Hydrocort/Neomycin/Polymyxin B [Cortisporin Otic Soln] 3 drop EYEBOTH TID PRN [History] Magnesium Oxide 500 mg PO DAILY 12/23/16 [History] Multivitamin [Tep-Kwulud-Xzlva] 1 tab PO DAILY 12/23/16 [History] Naproxen Sodium [Aleve] 2 tab PO DAILY PRN 12/23/16 [History] Silver Sulfadiazine [Silvadene 1% Cream 20 GM] 1 applic TOP BID 12/23/16 [ History] Simvastatin [Zocor] 20 mg PO DAILY 12/23/16 [History] Spironolactone [Aldactone] 1 tab PO DAILY 12/23/16 [History] Tamsulosin HCl 1 cap PO DAILY 12/23/16 [History] Triamcinolone Acetonide [Triamcinolone Acetonide 0.1% Crm] 1 applic TOP BID PRN 12/23/16 [History] Umeclidinium Brm/Vilanterol Tr [Anoro Ellipta 62.5-25 Mcg INH] 1 puff INH DAILY 12/23/16 [History] oxyCODONE 1 tab PO ASDIRECTED 12/23/16 [History] traMADol HCl [Tramadol HCl ER] 300 mg PO BEDTIME 12/23/16 [History] Past Medical History HEENT History: Reports: Impaired Vision Cardiovascular History: Reports: 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), Heart Murmur (Aortic Ejection murmur), High Cholesterol, Hypertension, PVD Respiratory History: Reports: COPD Other Respiratory History: Lung Nodule Gastrointestinal History: Reports: Irritable Bowel Syndrome Genitourinary History: Reports: Other (See Below) (male hypogonadism) Other Genitourinary History: occasional UTI Musculoskeletal History: Reports: Back Pain, Chronic, Fracture (vertebral compression fxs T4,T7,L1,L2,L3), Osteoarthritis, Osteoporosis Neurological History: Reports: Neuropathy, Peripheral Other Neuro History: Neurodermatitis bilateral hands/forearms Psychiatric History: Reports: Depression Hematologic History: Reports: None Immunologic History: Reports: None Oncologic (Cancer) History: Reports: None Dermatologic History: Reports: Venous Stasis Dermatitis - Infectious Disease History Infectious Disease History: Reports: Chicken Pox, Shingles - Past Surgical History Musculoskeletal Surgical History: Reports: Other (See Below) Other Musculoskeletal Surgeries/Procedures:: back surgeries, "lazy foot" Social & Family History - Family History Family Medical History: Noncontributory HEENT: Reports: Impaired Vision Cardiac: Reports: [place] Respiratory: Reports: COPD GI: Reports: None Musculoskeletal: Reports: Arthritis, Gout Neurological: Reports: Migraines Endocrine/Metabolic: Reports: None - Tobacco Use Smoking Status *Q: Current Every Day Smoker Years of Tobacco use: 45 Packs/Tins Daily: 1.5 Second Hand Smoke Exposure: Yes - Caffeine Use Caffeine Use: Reports: Coffee - Alcohol Use Days Per Week of Alcohol Use: 0 - Recreational Drug Use Recreational Drug Use: No H&P Review of Systems - Review of Systems: Review Of Systems: ROS reveals no pertinent complaints other than HPI. Exam - Exam Exam: See Below - Vital Signs Vital Signs: Last Vital Signs Temp 36.5 C 12/24/16 01:48 Pulse 101 H 12/24/16 01:48 Resp 12 12/24/16 01:48 BP 159/82 H 12/24/16 01:48 Pulse Ox 96 12/24/16 06:48 Weight: 74.389 kg - Exam Physical Exam Comments:: UE: patient is freely moving the upper extremities with no pain and no signs of trauma Pelvis: stable to AP and lateral compression RLE: shortened and pain with log roll, patient has decreased cap refill distally and dopplerable pulses only in the foot, he has a sore near the sacral region that is superficial, otherwise neurologically intact to the right lower extremity LLE: no pain with log roll, foot drop noted on the left side - Patient Data Lab Results Last 24 hrs: Laboratory Results - last 24 hr 12/23/16 12/23/16 12/23/16 Range/Units 18:00 18:00 18:45 WBC 11.24 H (4.23-9.07) K/mm3 RBC 4.09 L (4.63-6.08) M/mm3 Hgb 12.2 L (13.7-17.5) gm/L Hct 37.3 L (40.1-51.0) % MCV 91.2 (79.0-92.2) fl MCH 29.8 (25.7-32.2) pg MCHC 32.7 (32.2-35.5) g/dl RDW Std Deviation 49.1 H (35.1-43.9) fL Plt Count 158 L (163-337) K/mm3 MPV 10.3 (9.4-12.3) fl Neut % (Auto) 84.1 H (34.0-67.9) % Lymph % (Auto) 7.7 L (21.8-53.1) % [place] % (Auto) 7.0 (5.3-12.2) % Eos % (Auto) 0.8 (0.8-7.0) Baso % (Auto) 0.2 (0.1-1.2) % Neut # (Auto) 9.45 H (1.78-5.38) K/mm3 Lymph # (Auto) 0.87 L (1.32-3.57) K/mm3 [place] # (Auto) 0.79 (0.30-0.82) K/mm3 Eos # (Auto) 0.09 (0.04-0.54) K/mm3 Baso # (Auto) 0.02 (0.01-0.08) K/mm3 Manual Slide Review Normal smear PT (8.0-13.0) SECONDS INR APTT (22-36) SECONDS Sodium 131 L (136-145) mEq/L Potassium 4.4 (3.5-5.1) mEq/L Chloride 100 (98-107) mEq/L Carbon Dioxide 24 (21-32) mEq/L Anion Gap 11.4 (5-15) BUN 21 H (7-18) mg/dL Creatinine 1.1 (0.7-1.3) mg/dL Est Cr Clr Drug Dosing 65.74 mL/min Estimated GFR (MDRD) > 60 (>60) mL/min BUN/Creatinine Ratio 19.1 H (14-18) Glucose 120 H (83-115) mg/dL Calcium 7.8 L (8.5-10.1) mg/dL Magnesium 1.7 L (1.8-2.4) mg/dl Total Bilirubin 0.6 (0.2-1.0) mg/dL AST 19 (15-37) U/L ALT 25 (16-63) U/L Alkaline Phosphatase 77 (46-116) U/L Troponin I 0.032 (0.00-0.056) ng/mL Total Protein 7.0 (6.4-8.2) g/dl Albumin 2.9 L (3.4-5.0) g/dl Globulin 4.1 gm/dL Albumin/Globulin Ratio 0.7 L (1-2) MRSA (PCR) Negative 12/24/16 12/24/16 12/24/16 Range/Units 06:30 06:30 06:30 WBC 11.01 H (4.23-9.07) K/mm3 RBC 4.02 L (4.63-6.08) M/mm3 Hgb 12.1 L (13.7-17.5) gm/L Hct 36.6 L (40.1-51.0) % MCV 91.0 (79.0-92.2) fl MCH 30.1 (25.7-32.2) pg MCHC 33.1 (32.2-35.5) g/dl RDW Std Deviation 49.2 H (35.1-43.9) fL Plt Count 135 L (163-337) K/mm3 MPV 10.3 (9.4-12.3) fl Neut % (Auto) 81.0 H (34.0-67.9) % Lymph % (Auto) 8.9 L (21.8-53.1) % [place] % (Auto) 6.4 (5.3-12.2) % Eos % (Auto) 3.2 (0.8-7.0) Baso % (Auto) 0.3 (0.1-1.2) % Neut # (Auto) 8.93 H (1.78-5.38) K/mm3 Lymph # (Auto) 0.98 L (1.32-3.57) K/mm3 [place] # (Auto) 0.70 (0.30-0.82) K/mm3 Eos # (Auto) 0.35 (0.04-0.54) K/mm3 Baso # (Auto) 0.03 (0.01-0.08) K/mm3 Manual Slide Review Abnormal smear PT 12.0 (8.0-13.0) SECONDS INR 1.09 APTT 29 (22-36) SECONDS Sodium 134 L (136-145) mEq/L Potassium 4.2 (3.5-5.1) mEq/L Chloride 104 (98-107) mEq/L Carbon Dioxide 24 (21-32) mEq/L Anion Gap 10.2 (5-15) BUN 15 (7-18) mg/dL Creatinine 1.0 (0.7-1.3) mg/dL Est Cr Clr Drug Dosing 70.26 mL/min Estimated GFR (MDRD) > 60 (>60) mL/min BUN/Creatinine Ratio 15.0 (14-18) Glucose 122 H (83-115) mg/dL Calcium 7.6 L (8.5-10.1) mg/dL Magnesium (1.8-2.4) mg/dl Total Bilirubin (0.2-1.0) mg/dL AST (15-37) U/L ALT (16-63) U/L Alkaline Phosphatase (46-116) U/L Troponin I (0.00-0.056) ng/mL Total Protein (6.4-8.2) g/dl Albumin (3.4-5.0) g/dl Globulin gm/dL Albumin/Globulin Ratio (1-2) MRSA (PCR) Result Diagrams: 12/24/16 06:30 12/24/16 06:30 Consult PN Assessment/Plan Problem List Initiated/Reviewed/Updated: Yes Plan: A: displaced right femoral neck fracture P: At this time I discussed with the patient the options for a femoral neck fracture and did discuss that surgery is usually recommended as the patient would be unable to ambulate if it is not fixed. I discussed with the patient that treatment is usually a total hip arthroplasty for this fracture. The risks , benefits, complication, and alternatives were discussed and the patient would like to proceed with right total hip arthroplasty. Patient will be cleared by medicine and will be NPO after midnight. We will plan on right total hip arthroplasty in the morning.
[2016-12-24] MEDS ORDERED: Lactated Ringers 1,000 ML ONE ×2 (08:59)
[2016-12-24] MEDS ORDERED: Bisacodyl 5 MG Tab PO PRN (09:00)
[2016-12-24] MEDS ORDERED: Magnesium Hydroxide 400 MG/5 ML Susp 30 ML Cup PO PRN (09:00)
[2016-12-24] MEDS ORDERED: Simvastatin 20 MG Tab PO SCH (09:00)
[2016-12-24] MEDS ORDERED: Naloxone 0.4 MG/ML SDV IVPUSH PRN (09:00)
[2016-12-24] MEDS ORDERED: Sennosides 8.6 MG Tab PO PRN (09:00)
--- NOTE | 2016-12-24 09:15 | PCM.POSTAN ---
POST ANESTHESIA ASSESSMENT - MENTAL STATUS Mental Status: alert, oriented - VITAL SIGNS Pulse Rate: 87 SaO2: 93 Resp Rate: 15 Blood Pressure: 124/53 Temperature: 36.8 C - RESPIRATORY Respiratory Status: respiratory rate WNL, airway patent, O2 saturation stable, supplemental oxygen - CARDIOVASCULAR CV Status: pulse rate WNL, blood pressure stable - GASTROINTESTINAL GI Status: no symptoms - PAIN Pain Score: 0 - POST OP HYDRATION Hydration Status: adequate & stable
[2016-12-24] MEDS ORDERED: fentaNYL 100 MCG/2 ML SDV IVPUSH PRN (09:24)
--- NOTE | 2016-12-24 10:24 | CR ---
Right hip: AP view of the pelvis was obtained centered at hips. AP and lateral views of the right hip were also obtained. Comparison: No previous pelvis exam. Findings: Right hip prosthesis is seen. Components are aligned. Bony structures are osteopenic but appear intact. Soft tissue air is noted from the surgical procedure. Impression: 1. Recently placed right hip prosthesis. Nothing acute is otherwise seen. Diagnostic code #2
[2016-12-24] MEDS: Spironolactone 25 MG Tab PO SCH (10:30)
[2016-12-24] MEDS: Tamsulosin 0.4 MG Cap.ER PO SCH (10:30)
[2016-12-24] MEDS: DULoxetine 30 MG Cap PO SCH (10:30)
[2016-12-24] MEDS: Nicotine 21 MG/24 Hr Patch TRDERM SCH (10:30)
[2016-12-24] MEDS: Famotidine 20 MG Tab PO SCH ×2 (10:31→20:19)
[2016-12-24] MEDS: Docusate Sodium 100 MG Cap PO SCH ×2 (10:31→20:19)
[2016-12-24] MEDS: Remove Patch **NICOTINE TRDERM SCH (10:31)
[2016-12-24] MEDS: Aspirin 325 MG Tab.EC PO SCH ×2 (10:37→20:19)
--- NOTE | 2016-12-24 13:25 | PCM.PN ---
<Yessi Sherwood M - Last Filed: 12/24/16 13:26> - General Info Date of Service: 12/24/16 Admission Dx/Problem (Free Text): Admission Diagnosis/Problem Admission Diagnosis/Problem Fracture of bone [place] is seen this afternoon, s/p JUVE with Dr. Smalls this morning. Pain is well controlled. No nausea, he is hungry and ate 100% of his lunch. Working with PT/OT. Functional Status: Reports: pain controlled, tolerating diet, ambulating, urinating (naranjo cath to be dc'd later today) - Review of Systems General: Reports: No Symptoms HEENT: Reports: no symptoms Pulmonary: Reports: no symptoms Cardiovascular: Reports: No Symptoms Gastrointestinal: Reports: No symptoms Genitourinary: Reports: no symptoms Musculoskeletal: Reports: leg pain Skin: Reports: no symptoms Neurological: Reports: No Symptoms Psychiatric: Reports: no symptoms - Patient Data Vitals - most recent: Last Vital Signs Temp 98.1 F 12/24/16 09:47 Pulse 79 12/24/16 10:31 Resp 17 12/24/16 12:00 BP 112/53 L 12/24/16 12:00 Pulse Ox 95 12/24/16 10:31 Weight - most recent: 74.389 kg I&O - last 24 hours: Intake & Output 12/23/16 12/24/16 12/24/16 22:59 06:59 14:59 Intake Total 360 2454 150 Output Total 1300 435 Balance 360 1154 -285 Lab Results last 24 hrs: Laboratory Results - last 24 hr 12/23/16 12/23/16 12/23/16 Range/Units 18:00 18:00 18:45 WBC 11.24 H (4.23-9.07) K/mm3 RBC 4.09 L (4.63-6.08) M/mm3 Hgb 12.2 L (13.7-17.5) gm/L Hct 37.3 L (40.1-51.0) % MCV 91.2 (79.0-92.2) fl MCH 29.8 (25.7-32.2) pg MCHC 32.7 (32.2-35.5) g/dl RDW Std Deviation 49.1 H (35.1-43.9) fL Plt Count 158 L (163-337) K/mm3 MPV 10.3 (9.4-12.3) fl Neut % (Auto) 84.1 H (34.0-67.9) % Lymph % (Auto) 7.7 L (21.8-53.1) % Wetzel % (Auto) 7.0 (5.3-12.2) % Eos % (Auto) 0.8 (0.8-7.0) Baso % (Auto) 0.2 (0.1-1.2) % Neut # (Auto) 9.45 H (1.78-5.38) K/mm3 Lymph # (Auto) 0.87 L (1.32-3.57) K/mm3 Wetzel # (Auto) 0.79 (0.30-0.82) K/mm3 Eos # (Auto) 0.09 (0.04-0.54) K/mm3 Baso # (Auto) 0.02 (0.01-0.08) K/mm3 Manual Slide Review Normal smear PT (8.0-13.0) SECONDS INR APTT (22-36) SECONDS Sodium 131 L (136-145) mEq/L Potassium 4.4 (3.5-5.1) mEq/L Chloride 100 (98-107) mEq/L Carbon Dioxide 24 (21-32) mEq/L Anion Gap 11.4 (5-15) BUN 21 H (7-18) mg/dL Creatinine 1.1 (0.7-1.3) mg/dL Est Cr Clr Drug Dosing 65.74 mL/min Estimated GFR (MDRD) > 60 (>60) mL/min BUN/Creatinine Ratio 19.1 H (14-18) Glucose 120 H (83-115) mg/dL Calcium 7.8 L (8.5-10.1) mg/dL Magnesium 1.7 L (1.8-2.4) mg/dl Total Bilirubin 0.6 (0.2-1.0) mg/dL AST 19 (15-37) U/L ALT 25 (16-63) U/L Alkaline Phosphatase 77 (46-116) U/L Troponin I 0.032 (0.00-0.056) ng/mL Total Protein 7.0 (6.4-8.2) g/dl Albumin 2.9 L (3.4-5.0) g/dl Globulin 4.1 gm/dL Albumin/Globulin Ratio 0.7 L (1-2) MRSA (PCR) Negative 12/24/16 12/24/16 12/24/16 Range/Units 06:30 06:30 06:30 WBC 11.01 H (4.23-9.07) K/mm3 RBC 4.02 L (4.63-6.08) M/mm3 Hgb 12.1 L (13.7-17.5) gm/L Hct 36.6 L (40.1-51.0) % MCV 91.0 (79.0-92.2) fl MCH 30.1 (25.7-32.2) pg MCHC 33.1 (32.2-35.5) g/dl RDW Std Deviation 49.2 H (35.1-43.9) fL Plt Count 135 L (163-337) K/mm3 MPV 10.3 (9.4-12.3) fl Neut % (Auto) 81.0 H (34.0-67.9) % Lymph % (Auto) 8.9 L (21.8-53.1) % Wetzel % (Auto) 6.4 (5.3-12.2) % Eos % (Auto) 3.2 (0.8-7.0) Baso % (Auto) 0.3 (0.1-1.2) % Neut # (Auto) 8.93 H (1.78-5.38) K/mm3 Lymph # (Auto) 0.98 L (1.32-3.57) K/mm3 Wetzel # (Auto) 0.70 (0.30-0.82) K/mm3 Eos # (Auto) 0.35 (0.04-0.54) K/mm3 Baso # (Auto) 0.03 (0.01-0.08) K/mm3 Manual Slide Review Abnormal smear PT 12.0 (8.0-13.0) SECONDS INR 1.09 APTT 29 (22-36) SECONDS Sodium 134 L (136-145) mEq/L Potassium 4.2 (3.5-5.1) mEq/L Chloride 104 (98-107) mEq/L Carbon Dioxide 24 (21-32) mEq/L Anion Gap 10.2 (5-15) BUN 15 (7-18) mg/dL Creatinine 1.0 (0.7-1.3) mg/dL Est Cr Clr Drug Dosing 70.26 mL/min Estimated GFR (MDRD) > 60 (>60) mL/min BUN/Creatinine Ratio 15.0 (14-18) Glucose 122 H (83-115) mg/dL Calcium 7.6 L (8.5-10.1) mg/dL Magnesium (1.8-2.4) mg/dl Total Bilirubin (0.2-1.0) mg/dL AST (15-37) U/L ALT (16-63) U/L Alkaline Phosphatase (46-116) U/L Troponin I (0.00-0.056) ng/mL Total Protein (6.4-8.2) g/dl Albumin (3.4-5.0) g/dl Globulin gm/dL Albumin/Globulin Ratio (1-2) MRSA (PCR) Med Orders - Current: Current Medications Albuterol (Proventil Hfa) 0 gm INH QID PRN PRN Reason: Dyspnea Last Admin: 12/24/16 06:46 Dose: 2 puff Albuterol/Ipratropium (Duoneb 3.0-0.5 Mg/3 Ml) 2.5 ml NEB QID PRN PRN Reason: Shortness of Breath Aspirin (Ecotrin) 325 mg PO BID [facility] Last Admin: 12/24/16 10:37 Dose: 325 mg Bisacodyl (Dulcolax) 5 mg PO DAILY PRN PRN Reason: Constipation Docusate Sodium (Colace) 100 mg PO BID [facility] Last Admin: 12/24/16 10:31 Dose: Not Given Duloxetine HCl (Cymbalta) 90 mg PO DAILY [facility] Last Admin: 12/24/16 10:30 Dose: 90 mg Enoxaparin Sodium (Lovenox) 40 mg SUBCUT DAILY@1999 [facility] Stop: 12/24/16 23:59 Last Admin: 12/23/16 19:35 Dose: Not Given Famotidine (Pepcid) 20 mg PO BID [facility] Last Admin: 12/24/16 10:31 Dose: Not Given Hydromorphone HCl (Dilaudid) 1 mg IVPUSH Q4H PRN PRN Reason: Pain (severe 7-10) Last Admin: 12/23/16 20:56 Dose: 1 mg Cefazolin Sodium/Dextrose 2 gm (/ Premix) 50 mls @ 100 mls/hr IV Q8H [facility] Stop: 12/25/16 07:29 Magnesium Hydroxide (Milk Of Magnesia) 30 ml PO BID PRN PRN Reason: Constipation Miscellaneous Information (Remove Patch) 0 ea TRDERM DAILY [facility] Last Admin: 12/24/16 10:31 Dose: 1 ea Multivitamins (Thera) 1 each PO WITHBREAKFAST [facility] Neomycin/Polymyxin/Bacitr/Hydrocort (Cortisporin Ophth Oint) 0 gm EYEBOTH TID PRN PRN Reason: Other Nicotine (Habitrol) 21 mg TRDERM DAILY [facility] Last Admin: 12/24/16 10:30 Dose: 21 mg Ondansetron HCl (Zofran) 4 mg IVPUSH Q6H PRN PRN Reason: Nausea/Vomiting Oxycodone/Acetaminophen (Percocet 325-5 Mg) 1 - 2 tab PO Q4H PRN PRN Reason: Pain Last Admin: 12/24/16 10:31 Dose: 2 tab Senna (Senna) 8.6 mg PO BID PRN PRN Reason: Constipation Simvastatin (Zocor) 20 mg PO BEDTIME [facility] Spironolactone (Aldactone) 25 mg PO DAILY [facility] Last Admin: 12/24/16 10:30 Dose: 25 mg Tamsulosin HCl (Flomax) 0.4 mg PO DAILY [facility] Last Admin: 12/24/16 10:30 Dose: 0.4 mg Discontinued Medications Hydrocodone Bitart/Acetaminophen (Bellerose 325-5 Mg) 1 tab PO Q4H PRN PRN Reason: Pain (moderate 4-6) Albuterol/Ipratropium (Duoneb 3.0-0.5 Mg/3 Ml) 3 ml NEB ONETIME ONE Stop: 12/23/16 12:40 Last Admin: 12/23/16 12:51 Dose: 3 ml Bupivacaine HCl (Marcaine 0.25%) Confirm Administered Dose 30 ml .ROUTE .STK- MED ONE Stop: 12/24/16 05:46 Bupivacaine HCl (Marcaine 0.25%) Confirm Administered Dose 30 ml .ROUTE .STK- MED ONE Stop: 12/24/16 07:38 Last Admin: 12/24/16 08:28 Dose: 30 ml Cefazolin Sodium (Ancef) Confirm Administered Dose 2 gm .ROUTE .STK-MED ONE Stop: 12/24/16 05:46 Last Admin: 12/24/16 08:21 Dose: 2 gm Cefazolin Sodium (Ancef) Confirm Administered Dose 2 gm .ROUTE .STK-MED ONE Stop: 12/24/16 06:30 Morphine Sulfate 8 mg/Epinephrine HCl 0.3 mg/Cefuroxime Sodium 750 mg/Ketorolac Tromethamine 30 mg/Sodium Chloride 27.9 ml 0 mg .XX ONETIME ONE Stop: 12/24/16 07:21 Last Admin: 12/24/16 10:32 Dose: Not Given Diphenhydramine HCl (Benadryl) 25 mg IVPUSH Q6H PRN PRN Reason: Pruritis Stop: 12/24/16 12:00 Fentanyl (Sublimaze) Confirm Administered Dose 100 mcg .ROUTE .STK-MED ONE Stop: 12/24/16 06:22 Fentanyl (Sublimaze) 50 mcg IVPUSH Q5M PRN PRN Reason: Pain Stop: 12/24/16 09:40 Hydromorphone HCl (Dilaudid) 0.5 mg IVPUSH ONETIME ONE Stop: 12/23/16 12:03 Last Admin: 12/23/16 12:12 Dose: 0.5 mg Hydromorphone HCl (Dilaudid) 0.5 mg IVPUSH ONETIME ONE Stop: 12/23/16 13:03 Last Admin: 12/23/16 13:10 Dose: 0.5 mg Sodium Chloride (Normal Saline) 500 mls @ 999 mls/hr IV .BOLUS ONE Stop: 12/23/16 12:32 Last Admin: 12/23/16 12:11 Dose: 999 mls/hr Sodium Chloride (Normal Saline) 1,000 mls @ 150 mls/hr IV ASDIRECTED [facility] Last Admin: 12/23/16 23:49 Dose: 150 mls/hr Lidocaine HCl (Xylocaine-Mpf 1%) Confirm Administered Dose 2 mls @ as directed .ROUTE .STK-MED ONE Stop: 12/24/16 06:30 Lactated Ringer's (Ringers, Lactated) Confirm Administered Dose 1,000 mls @ as directed .ROUTE .STK-MED ONE Stop: 12/24/16 09:00 Lactated Ringer's (Ringers, Lactated) Confirm Administered Dose 1,000 mls @ as directed .ROUTE .STK-MED ONE Stop: 12/24/16 09:00 Iodine (Iodine 2% Mild Tincture) Confirm Administered Dose 30 ml .ROUTE .STK- MED ONE Stop: 12/24/16 05:46 Last Admin: 12/24/16 08:18 Dose: 18 ml Ketamine HCl (Ketalar) Confirm Administered Dose 500 mg .ROUTE .STK-MED ONE Stop: 12/24/16 06:22 Meperidine HCl (Demerol) 12.5 mg IVPUSH ONETIME PRN PRN Reason: Shivering Stop: 12/24/16 12:00 Midazolam HCl (Versed 1 Mg/Ml) Confirm Administered Dose 2 mg .ROUTE .STK-MED ONE Stop: 12/24/16 06:22 Morphine Sulfate (Duramorph Pf) Confirm Administered Dose 10 mg .ROUTE .STK-MED ONE Stop: 12/24/16 06:34 Naloxone HCl (Narcan) 0.1 mg IVPUSH Q5M PRN PRN Reason: Oversedation Stop: 12/24/16 09:16 Ondansetron HCl (Zofran) Confirm Administered Dose 4 mg .ROUTE .STK-MED ONE Stop: 12/24/16 06:30 Ondansetron HCl (Zofran) 4 mg IVPUSH ONETIME PRN PRN Reason: Nausea/Vomiting Stop: 12/24/16 12:00 Oxycodone HCl (Oxycodone) 10 mg PO ONETIME ONE Stop: 12/23/16 20:38 Last Admin: 12/23/16 20:55 Dose: 10 mg Phenylephrine HCl (Phenylephrine In Ns 100 Mcg/Ml) Confirm Administered Dose 1 mg .ROUTE .STK-MED ONE Stop: 12/24/16 08:09 Propofol (Diprivan 20 Ml) Confirm Administered Dose 400 mg .ROUTE .STK-MED ONE Stop: 12/24/16 06:22 Simvastatin (Zocor) 20 mg PO DAILY ROL[facility] Tranexamic Acid (Cyklokapron) Confirm Administered Dose 1,000 mg .ROUTE .STK- MED ONE Stop: 12/24/16 05:46 Last Admin: 12/24/16 08:38 Dose: 1,000 mg - Exam General: alert, oriented HEENT: Pupils equal, Pupils reactive, EOMI, Mucous membr. moist/pink Neck: supple Lungs: Clear to auscultation, Normal respiratory effort Cardiovascular: Regular Rate, Regular Rhythm Abdomen: bowel sounds present, soft, no tenderness, no distension (Male) Exam: Deferred, Other (naranjo draining clear yellow urine) Extremities: no edema, other (teds and SCD's present; ice to hip) Peripheral Pulses: 1+: Dorsalis Pedis (L), Dorsalis Pedis (R) Skin: warm, dry, intact Neurological: no new focal deficit Psy/Mental Status: alert, normal affect, normal mood - Problem List & Annotations (1) COPD (chronic obstructive pulmonary disease) SNOMED Code(s): 94876917 Code(s): J44.9 - CHRONIC OBSTRUCTIVE PULMONARY DISEASE, UNSPECIFIED Status : Acute Current Visit: Yes Qualifiers: COPD type: emphysema Emphysema type: panlobular Qualified Code(s): J43.1 - Panlobular emphysema (2) Foot drop, left foot SNOMED Code(s): 8916231, 23860233 Code(s): M21.372 - FOOT DROP, LEFT FOOT Status: Acute Current Visit: Yes (3) Fracture of neck of femur, hip SNOMED Code(s): 9591893 Code(s): S72.009A - FRACTURE OF UNSP PART OF NECK OF UNSP FEMUR, INIT Status: Acute Current Visit: Yes - Problem List Review Problem List Initiated/Reviewed/Updated: Yes - My Orders Last 24 Hours: My Active Orders 12/24/16 06:08 Consult to Physician [CONS] Routine 12/24/16 06:09 Notify Provider Consults [RC] ASDIRECTED 12/24/16 21:00 Simvastatin [Zocor] 20 mg PO BEDTIME - Plan Plan:: Impression: POD #0- Rt JUVE with Dr. Smalls- s/p fall with femoral neck fx - Pain managment and DVT prophylax per primary team - PT/OT - RT/IS - VSS; labs stable today - No postop nausea, pain controlled at this time COPD patient without documented CAD, able to do at least 4 METS; may proceed to surgery - RT/IS/C&DB, nebs prn - Oxygen PRN to keep sats >90% - Nicotine patch if needed Plan: Daily labs Home meds SW/CM for DC planning; patient is home alone- may need SNF rehab stay, pending progress PT/OT DVT/GI prophylaxis Patient is full code status <Ivy Velazco - Last Filed: 12/24/16 13:40> - Patient Data Vitals - most recent: Last Vital Signs Temp 36.7 C 12/24/16 09:47 Pulse 79 12/24/16 10:31 Resp 17 12/24/16 12:00 BP 112/53 L 12/24/16 12:00 Pulse Ox 95 12/24/16 10:31 I&O - last 24 hours: Intake & Output 12/23/16 12/24/16 12/24/16 22:59 06:59 14:59 Intake Total 360 2454 150 Output Total 1300 435 Balance 360 1154 -285 Lab Results last 24 hrs: Laboratory Results - last 24 hr 12/23/16 12/23/16 12/23/16 Range/Units 18:00 18:00 18:45 WBC 11.24 H (4.23-9.07) K/mm3 RBC 4.09 L (4.63-6.08) M/mm3 Hgb 12.2 L (13.7-17.5) gm/L Hct 37.3 L (40.1-51.0) % MCV 91.2 (79.0-92.2) fl MCH 29.8 (25.7-32.2) pg MCHC 32.7 (32.2-35.5) g/dl RDW Std Deviation 49.1 H (35.1-43.9) fL Plt Count 158 L (163-337) K/mm3 MPV 10.3 (9.4-12.3) fl Neut % (Auto) 84.1 H (34.0-67.9) % Lymph % (Auto) 7.7 L (21.8-53.1) % Wetzel % (Auto) 7.0 (5.3-12.2) % Eos % (Auto) 0.8 (0.8-7.0) Baso % (Auto) 0.2 (0.1-1.2) % Neut # (Auto) 9.45 H (1.78-5.38) K/mm3 Lymph # (Auto) 0.87 L (1.32-3.57) K/mm3 Wetzel # (Auto) 0.79 (0.30-0.82) K/mm3 Eos # (Auto) 0.09 (0.04-0.54) K/mm3 Baso # (Auto) 0.02 (0.01-0.08) K/mm3 Manual Slide Review Normal smear PT (8.0-13.0) SECONDS INR APTT (22-36) SECONDS Sodium 131 L (136-145) mEq/L Potassium 4.4 (3.5-5.1) mEq/L Chloride 100 (98-107) mEq/L Carbon Dioxide 24 (21-32) mEq/L Anion Gap 11.4 (5-15) BUN 21 H (7-18) mg/dL Creatinine 1.1 (0.7-1.3) mg/dL Est Cr Clr Drug Dosing 65.74 mL/min Estimated GFR (MDRD) > 60 (>60) mL/min BUN/Creatinine Ratio 19.1 H (14-18) Glucose 120 H (83-115) mg/dL Calcium 7.8 L (8.5-10.1) mg/dL Magnesium 1.7 L (1.8-2.4) mg/dl Total Bilirubin 0.6 (0.2-1.0) mg/dL AST 19 (15-37) U/L ALT 25 (16-63) U/L Alkaline Phosphatase 77 (46-116) U/L Troponin I 0.032 (0.00-0.056) ng/mL Total Protein 7.0 (6.4-8.2) g/dl Albumin 2.9 L (3.4-5.0) g/dl Globulin 4.1 gm/dL Albumin/Globulin Ratio 0.7 L (1-2) MRSA (PCR) Negative 12/24/16 12/24/16 12/24/16 Range/Units 06:30 06:30 06:30 WBC 11.01 H (4.23-9.07) K/mm3 RBC 4.02 L (4.63-6.08) M/mm3 Hgb 12.1 L (13.7-17.5) gm/L Hct 36.6 L (40.1-51.0) % MCV 91.0 (79.0-92.2) fl MCH 30.1 (25.7-32.2) pg MCHC 33.1 (32.2-35.5) g/dl RDW Std Deviation 49.2 H (35.1-43.9) fL Plt Count 135 L (163-337) K/mm3 MPV 10.3 (9.4-12.3) fl Neut % (Auto) 81.0 H (34.0-67.9) % Lymph % (Auto) 8.9 L (21.8-53.1) % Wetzel % (Auto) 6.4 (5.3-12.2) % Eos % (Auto) 3.2 (0.8-7.0) Baso % (Auto) 0.3 (0.1-1.2) % Neut # (Auto) 8.93 H (1.78-5.38) K/mm3 Lymph # (Auto) 0.98 L (1.32-3.57) K/mm3 Wetzel # (Auto) 0.70 (0.30-0.82) K/mm3 Eos # (Auto) 0.35 (0.04-0.54) K/mm3 Baso # (Auto) 0.03 (0.01-0.08) K/mm3 Manual Slide Review Abnormal smear PT 12.0 (8.0-13.0) SECONDS INR 1.09 APTT 29 (22-36) SECONDS Sodium 134 L (136-145) mEq/L Potassium 4.2 (3.5-5.1) mEq/L Chloride 104 (98-107) mEq/L Carbon Dioxide 24 (21-32) mEq/L Anion Gap 10.2 (5-15) BUN 15 (7-18) mg/dL Creatinine 1.0 (0.7-1.3) mg/dL Est Cr Clr Drug Dosing 70.26 mL/min Estimated GFR (MDRD) > 60 (>60) mL/min BUN/Creatinine Ratio 15.0 (14-18) Glucose 122 H (83-115) mg/dL Calcium 7.6 L (8.5-10.1) mg/dL Magnesium (1.8-2.4) mg/dl Total Bilirubin (0.2-1.0) mg/dL AST (15-37) U/L ALT (16-63) U/L Alkaline Phosphatase (46-116) U/L Troponin I (0.00-0.056) ng/mL Total Protein (6.4-8.2) g/dl Albumin (3.4-5.0) g/dl Globulin gm/dL Albumin/Globulin Ratio (1-2) MRSA (PCR) Med Orders - Current: Current Medications Albuterol (Proventil Hfa) 0 gm INH QID PRN PRN Reason: Dyspnea Last Admin: 12/24/16 06:46 Dose: 2 puff Albuterol/Ipratropium (Duoneb 3.0-0.5 Mg/3 Ml) 2.5 ml NEB QID PRN PRN Reason: Shortness of Breath Aspirin (Ecotrin) 325 mg PO BID [facility] Last Admin: 12/24/16 10:37 Dose: 325 mg Bisacodyl (Dulcolax) 5 mg PO DAILY PRN PRN Reason: Constipation Docusate Sodium (Colace) 100 mg PO BID [facility] Last Admin: 12/24/16 10:31 Dose: Not Given Duloxetine HCl (Cymbalta) 90 mg PO DAILY [facility] Last Admin: 12/24/16 10:30 Dose: 90 mg Enoxaparin Sodium (Lovenox) 40 mg SUBCUT DAILY@1999 [facility] Stop: 12/24/16 23:59 Last Admin: 12/23/16 19:35 Dose: Not Given Famotidine (Pepcid) 20 mg PO BID [facility] Last Admin: 12/24/16 10:31 Dose: Not Given Hydromorphone HCl (Dilaudid) 1 mg IVPUSH Q4H PRN PRN Reason: Pain (severe 7-10) Last Admin: 12/23/16 20:56 Dose: 1 mg Cefazolin Sodium/Dextrose 2 gm (/ Premix) 50 mls @ 100 mls/hr IV Q8H [facility] Stop: 12/25/16 07:29 Magnesium Hydroxide (Milk Of Magnesia) 30 ml PO BID PRN PRN Reason: Constipation Miscellaneous Information (Remove Patch) 0 ea TRDERM DAILY [facility] Last Admin: 12/24/16 10:31 Dose: 1 ea Multivitamins (Thera) 1 each PO WITHBREAKFAST [facility] Neomycin/Polymyxin/Bacitr/Hydrocort (Cortisporin Ophth Oint) 0 gm EYEBOTH TID PRN PRN Reason: Other Nicotine (Habitrol) 21 mg TRDERM DAILY [facility] Last Admin: 12/24/16 10:30 Dose: 21 mg Ondansetron HCl (Zofran) 4 mg IVPUSH Q6H PRN PRN Reason: Nausea/Vomiting Oxycodone/Acetaminophen (Percocet 325-5 Mg) 1 - 2 tab PO Q4H PRN PRN Reason: Pain Last Admin: 12/24/16 10:31 Dose: 2 tab Senna (Senna) 8.6 mg PO BID PRN PRN Reason: Constipation Simvastatin (Zocor) 20 mg PO BEDTIME [facility] Spironolactone (Aldactone) 25 mg PO DAILY [facility] Last Admin: 12/24/16 10:30 Dose: 25 mg Tamsulosin HCl (Flomax) 0.4 mg PO DAILY [facility] Last Admin: 12/24/16 10:30 Dose: 0.4 mg Discontinued Medications Hydrocodone Bitart/Acetaminophen (Bellerose 325-5 Mg) 1 tab PO Q4H PRN PRN Reason: Pain (moderate 4-6) Albuterol/Ipratropium (Duoneb 3.0-0.5 Mg/3 Ml) 3 ml NEB ONETIME ONE Stop: 12/23/16 12:40 Last Admin: 12/23/16 12:51 Dose: 3 ml Bupivacaine HCl (Marcaine 0.25%) Confirm Administered Dose 30 ml .ROUTE .STK- MED ONE Stop: 12/24/16 05:46 Bupivacaine HCl (Marcaine 0.25%) Confirm Administered Dose 30 ml .ROUTE .STK- MED ONE Stop: 12/24/16 07:38 Last Admin: 12/24/16 08:28 Dose: 30 ml Cefazolin Sodium (Ancef) Confirm Administered Dose 2 gm .ROUTE .STK-MED ONE Stop: 12/24/16 05:46 Last Admin: 12/24/16 08:21 Dose: 2 gm Cefazolin Sodium (Ancef) Confirm Administered Dose 2 gm .ROUTE .STK-MED ONE Stop: 12/24/16 06:30 Morphine Sulfate 8 mg/Epinephrine HCl 0.3 mg/Cefuroxime Sodium 750 mg/Ketorolac Tromethamine 30 mg/Sodium Chloride 27.9 ml 0 mg .XX ONETIME ONE Stop: 12/24/16 07:21 Last Admin: 12/24/16 10:32 Dose: Not Given Diphenhydramine HCl (Benadryl) 25 mg IVPUSH Q6H PRN PRN Reason: Pruritis Stop: 12/24/16 12:00 Fentanyl (Sublimaze) Confirm Administered Dose 100 mcg .ROUTE .STK-MED ONE Stop: 12/24/16 06:22 Fentanyl (Sublimaze) 50 mcg IVPUSH Q5M PRN PRN Reason: Pain Stop: 12/24/16 09:40 Hydromorphone HCl (Dilaudid) 0.5 mg IVPUSH ONETIME ONE Stop: 12/23/16 12:03 Last Admin: 12/23/16 12:12 Dose: 0.5 mg Hydromorphone HCl (Dilaudid) 0.5 mg IVPUSH ONETIME ONE Stop: 12/23/16 13:03 Last Admin: 12/23/16 13:10 Dose: 0.5 mg Sodium Chloride (Normal Saline) 500 mls @ 999 mls/hr IV .BOLUS ONE Stop: 12/23/16 12:32 Last Admin: 12/23/16 12:11 Dose: 999 mls/hr Sodium Chloride (Normal Saline) 1,000 mls @ 150 mls/hr IV ASDIRECTED [facility] Last Admin: 12/23/16 23:49 Dose: 150 mls/hr Lidocaine HCl (Xylocaine-Mpf 1%) Confirm Administered Dose 2 mls @ as directed .ROUTE .STK-MED ONE Stop: 12/24/16 06:30 Lactated Ringer's (Ringers, Lactated) Confirm Administered Dose 1,000 mls @ as directed .ROUTE .STK-MED ONE Stop: 12/24/16 09:00 Lactated Ringer's (Ringers, Lactated) Confirm Administered Dose 1,000 mls @ as directed .ROUTE .STK-MED ONE Stop: 12/24/16 09:00 Iodine (Iodine 2% Mild Tincture) Confirm Administered Dose 30 ml .ROUTE .STK- MED ONE Stop: 12/24/16 05:46 Last Admin: 12/24/16 08:18 Dose: 18 ml Ketamine HCl (Ketalar) Confirm Administered Dose 500 mg .ROUTE .STK-MED ONE Stop: 12/24/16 06:22 Meperidine HCl (Demerol) 12.5 mg IVPUSH ONETIME PRN PRN Reason: Shivering Stop: 12/24/16 12:00 Midazolam HCl (Versed 1 Mg/Ml) Confirm Administered Dose 2 mg .ROUTE .STK-MED ONE Stop: 12/24/16 06:22 Morphine Sulfate (Duramorph Pf) Confirm Administered Dose 10 mg .ROUTE .STK-MED ONE Stop: 12/24/16 06:34 Naloxone HCl (Narcan) 0.1 mg IVPUSH Q5M PRN PRN Reason: Oversedation Stop: 12/24/16 09:16 Ondansetron HCl (Zofran) Confirm Administered Dose 4 mg .ROUTE .STK-MED ONE Stop: 12/24/16 06:30 Ondansetron HCl (Zofran) 4 mg IVPUSH ONETIME PRN PRN Reason: Nausea/Vomiting Stop: 12/24/16 12:00 Oxycodone HCl (Oxycodone) 10 mg PO ONETIME ONE Stop: 12/23/16 20:38 Last Admin: 12/23/16 20:55 Dose: 10 mg Phenylephrine HCl (Phenylephrine In Ns 100 Mcg/Ml) Confirm Administered Dose 1 mg .ROUTE .STK-MED ONE Stop: 12/24/16 08:09 Propofol (Diprivan 20 Ml) Confirm Administered Dose 400 mg .ROUTE .STK-MED ONE Stop: 12/24/16 06:22 Simvastatin (Zocor) 20 mg PO DAILY ROLY Tranexamic Acid (Cyklokapron) Confirm Administered Dose 1,000 mg .ROUTE .STK- MED ONE Stop: 12/24/16 05:46 Last Admin: 12/24/16 08:38 Dose: 1,000 mg - Problem List & Annotations (1) Foot drop, left foot SNOMED Code(s): 0413545, 41814720 Code(s): M21.372 - FOOT DROP, LEFT FOOT Status: Acute Current Visit: Yes (2) COPD (chronic obstructive pulmonary disease) SNOMED Code(s): 50124697 Code(s): J44.9 - CHRONIC OBSTRUCTIVE PULMONARY DISEASE, UNSPECIFIED Status : Acute Current Visit: Yes Qualifiers: COPD type: emphysema Emphysema type: panlobular Qualified Code(s): J43.1 - Panlobular emphysema (3) Fracture of neck of femur, hip SNOMED Code(s): 3197351 Code(s): S72.009A - FRACTURE OF UNSP PART OF NECK OF UNSP FEMUR, INIT Status: Acute Current Visit: Yes - My Orders Last 24 Hours: My Active Orders 12/23/16 15:16 Albuterol [Proventil HFA] 0 gm INH QID PRN Bacitracin/HC/Neomycin/Polymyx [Cortisporin Ophth Oint] 0 gm EYEBOTH TID PRN 12/23/16 15:18 Vital Signs [RC] Q4HR 12/23/16 15:19 Code Status [Resuscitation Status] Routine 12/23/16 16:01 Consult to Geriatric Social Worker [CONS] Routine 12/23/16 16:04 HYDROmorphone [Dilaudid] 1 mg IVPUSH Q4H PRN 12/23/16 17:00 Antiembolic Devices [RC] QSHIFT MAY Hose [Antiembolic Hose] [OM.PC] Routine 12/23/16 17:59 RT Aerosol Therapy [RC] ASDIRECTED Albuterol/Ipratropium [DuoNeb 3.0-0.5 MG/3 ML] 2.5 ml NEB QID PRN 12/23/16 18:00 EKG 12 Lead [EKG Documentation Completion] [RC] ROUTINE Nicotine [Habitrol] 21 mg TRDERM DAILY 12/23/16 20:00 Enoxaparin [Lovenox] 40 mg SUBCUT DAILY@199912/24/16 09:00 Consult to Occupational Therapy [OT Evaluation and Treatment] [CONS] Routine Consult to Physical Therapy [PT Evaluation and Treatment] [CONS] Routine DULoxetine [Cymbalta] 90 mg PO DAILY Remove Patch 0 ea TRDERM DAILY Spironolactone [Aldactone] 25 mg PO DAILY Tamsulosin [Flomax] 0.4 mg PO DAILY 12/25/16 05:00 BMP [BASIC METABOLIC PANEL,BMP] [CHEM] DAILY CBC WITH AUTO DIFF [HEME] DAILY 12/25/16 07:00 CBC W/O DIFF,HEMOGRAM [HEME] MOTH@0700 12/26/16 05:00 BMP [BASIC METABOLIC PANEL,BMP] [CHEM] DAILY CBC WITH AUTO DIFF [HEME] DAILY 12/27/16 05:00 BMP [BASIC METABOLIC PANEL,BMP] [CHEM] DAILY CBC WITH AUTO DIFF [HEME] DAILY 12/29/16 07:00 CBC W/O DIFF,HEMOGRAM [HEME] MOTH@69901/01/17 07:00 CBC W/O DIFF,HEMOGRAM [HEME] MOTH@69901/05/17 07:00 CBC W/O DIFF,HEMOGRAM [HEME] MOTH@69901/08/17 07:00 CBC W/O DIFF,HEMOGRAM [HEME] MOTH@69901/12/17 07:00 CBC W/O DIFF,HEMOGRAM [HEME] MOTH@699 - Plan Plan:: POST OP DAY 0, see above; patient is narcotic dependent with home prescription for oxy; see home med list.
[2016-12-24] MEDS: ceFAZolin 2 GM in Premix Bag 1 BAG IV SCH ×2 (14:47→23:51)
[2016-12-24] MEDS: Simvastatin 20 MG Tab PO SCH (20:19)
[2016-12-24] MEDS: Enoxaparin 40 MG/0.4 ML Syringe SUBCUT SCH (20:19)
[2016-12-25] MEDS: Acetaminophen/oxyCODONE 325-5 MG Tab PO PRN ×5 (06:05→21:09)
[2016-12-25] MEDS: ceFAZolin 2 GM in Premix Bag 1 BAG IV SCH (06:06)
[2016-12-25] MEDS: Multivitamins,Therapeutic Tab PO SCH (06:06)
[2016-12-25] MEDS ORDERED: Pneumococcal Polyvalent-23 Vaccine 0.5 ML SDV IM ONE (06:46)
--- NOTE | 2016-12-25 07:25 | PCM.PN ---
- General Info Date of Service: 12/25/16 Admission Dx/Problem (Free Text): Admission Diagnosis/Problem Admission Diagnosis/Problem Fracture of bone POD #[address] Smalls s/p fall with femoral neck fx. Pain is well controlled. No nausea. Working with PT/OT. No concerns today. Functional Status: Reports: pain controlled, tolerating diet, ambulating, urinating - Review of Systems General: Reports: No Symptoms HEENT: Reports: no symptoms Pulmonary: Reports: no symptoms Cardiovascular: Reports: No Symptoms Gastrointestinal: Reports: No symptoms Genitourinary: Reports: no symptoms Musculoskeletal: Reports: leg pain Skin: Reports: no symptoms Neurological: Reports: No Symptoms Psychiatric: Reports: no symptoms - Patient Data Vitals - most recent: Last Vital Signs Temp 97.5 F 12/25/16 03:49 Pulse 79 12/24/16 10:31 Resp 14 12/25/16 06:52 BP 123/63 12/25/16 03:49 Pulse Ox 97 12/25/16 03:49 Weight - most recent: 168 lb 8 oz I&O - last 24 hours: Intake & Output 12/24/16 12/25/16 12/25/16 22:59 06:59 14:59 Intake Total 1140 500 Output Total 1300 300 Balance -160 200 Lab Results last 24 hrs: Laboratory Results - last 24 hr 12/24/16 12/24/16 12/24/16 Range/Units 06:30 06:30 06:30 WBC 11.01 H (4.23-9.07) K/mm3 RBC 4.02 L (4.63-6.08) M/mm3 Hgb 12.1 L (13.7-17.5) gm/L Hct 36.6 L (40.1-51.0) % MCV 91.0 (79.0-92.2) fl MCH 30.1 (25.7-32.2) pg MCHC 33.1 (32.2-35.5) g/dl RDW Std Deviation 49.2 H (35.1-43.9) fL Plt Count 135 L (163-337) K/mm3 MPV 10.3 (9.4-12.3) fl Neut % (Auto) 81.0 H (34.0-67.9) % Lymph % (Auto) 8.9 L (21.8-53.1) % [place] % (Auto) 6.4 (5.3-12.2) % Eos % (Auto) 3.2 (0.8-7.0) Baso % (Auto) 0.3 (0.1-1.2) % Neut # (Auto) 8.93 H (1.78-5.38) K/mm3 Lymph # (Auto) 0.98 L (1.32-3.57) K/mm3 [place] # (Auto) 0.70 (0.30-0.82) K/mm3 Eos # (Auto) 0.35 (0.04-0.54) K/mm3 Baso # (Auto) 0.03 (0.01-0.08) K/mm3 Manual Slide Review Abnormal smear PT 12.0 (8.0-13.0) SECONDS INR 1.09 APTT 29 (22-36) SECONDS Sodium 134 L (136-145) mEq/L Potassium 4.2 (3.5-5.1) mEq/L Chloride 104 (98-107) mEq/L Carbon Dioxide 24 (21-32) mEq/L Anion Gap 10.2 (5-15) BUN 15 (7-18) mg/dL Creatinine 1.0 (0.7-1.3) mg/dL Est Cr Clr Drug Dosing 70.26 mL/min Estimated GFR (MDRD) > 60 (>60) mL/min BUN/Creatinine Ratio 15.0 (14-18) Glucose 122 H (83-115) mg/dL Calcium 7.6 L (8.5-10.1) mg/dL 12/25/16 Range/Units 06:15 WBC 8.06 (4.23-9.07) K/mm3 RBC 3.32 L (4.63-6.08) M/mm3 Hgb 9.7 L (13.7-17.5) gm/L Hct 31.1 L (40.1-51.0) % MCV 93.7 H (79.0-92.2) fl MCH 29.2 (25.7-32.2) pg MCHC 31.2 L (32.2-35.5) g/dl RDW Std Deviation 49.3 H (35.1-43.9) fL Plt Count 111 L (163-337) K/mm3 MPV 10.0 (9.4-12.3) fl Neut % (Auto) 76.4 H (34.0-67.9) % Lymph % (Auto) 12.2 L (21.8-53.1) % [place] % (Auto) 5.7 (5.3-12.2) % Eos % (Auto) 5.2 (0.8-7.0) Baso % (Auto) 0.4 (0.1-1.2) % Neut # (Auto) 6.16 H (1.78-5.38) K/mm3 Lymph # (Auto) 0.98 L (1.32-3.57) K/mm3 [place] # (Auto) 0.46 (0.30-0.82) K/mm3 Eos # (Auto) 0.42 (0.04-0.54) K/mm3 Baso # (Auto) 0.03 (0.01-0.08) K/mm3 Manual Slide Review PT (8.0-13.0) SECONDS INR APTT (22-36) SECONDS Sodium (136-145) mEq/L Potassium (3.5-5.1) mEq/L Chloride (98-107) mEq/L Carbon Dioxide (21-32) mEq/L Anion Gap (5-15) BUN (7-18) mg/dL Creatinine (0.7-1.3) mg/dL Est Cr Clr Drug Dosing mL/min Estimated GFR (MDRD) (>60) mL/min BUN/Creatinine Ratio (14-18) Glucose (83-115) mg/dL Calcium (8.5-10.1) mg/dL Med Orders - Current: Current Medications Albuterol (Proventil Hfa) 0 gm INH QID PRN PRN Reason: Dyspnea Last Admin: 12/24/16 06:46 Dose: 2 puff Albuterol/Ipratropium (Duoneb 3.0-0.5 Mg/3 Ml) 2.5 ml NEB QID PRN PRN Reason: Shortness of Breath Aspirin (Ecotrin) 325 mg PO BID [facility] Last Admin: 12/24/16 20:19 Dose: 325 mg Bisacodyl (Dulcolax) 5 mg PO DAILY PRN PRN Reason: Constipation Docusate Sodium (Colace) 100 mg PO BID [facility] Last Admin: 12/24/16 20:19 Dose: 100 mg Duloxetine HCl (Cymbalta) 90 mg PO DAILY [facility] Last Admin: 12/24/16 10:30 Dose: 90 mg Famotidine (Pepcid) 20 mg PO BID [facility] Last Admin: 12/24/16 20:19 Dose: 20 mg Hydromorphone HCl (Dilaudid) 1 mg IVPUSH Q4H PRN PRN Reason: Pain (severe 7-10) Last Admin: 12/23/16 20:56 Dose: 1 mg Cefazolin Sodium/Dextrose 2 gm (/ Premix) 50 mls @ 100 mls/hr IV Q8H [facility] Stop: 12/25/16 07:29 Last Admin: 12/25/16 06:06 Dose: 100 mls/hr Magnesium Hydroxide (Milk Of Magnesia) 30 ml PO BID PRN PRN Reason: Constipation Miscellaneous Information (Remove Patch) 0 ea TRDERM DAILY [facility] Last Admin: 12/24/16 10:31 Dose: 1 ea Multivitamins (Thera) 1 each PO WITHBREAKFAST [facility] Last Admin: 12/25/16 06:06 Dose: 1 each Neomycin/Polymyxin/Bacitr/Hydrocort (Cortisporin Ophth Oint) 0 gm EYEBOTH TID PRN PRN Reason: Other Nicotine (Habitrol) 21 mg TRDERM DAILY [facility] Last Admin: 12/24/16 10:30 Dose: 21 mg Ondansetron HCl (Zofran) 4 mg IVPUSH Q6H PRN PRN Reason: Nausea/Vomiting Oxycodone/Acetaminophen (Percocet 325-5 Mg) 1 - 2 tab PO Q4H PRN PRN Reason: Pain Last Admin: 12/25/16 06:05 Dose: 2 tab Senna (Senna) 8.6 mg PO BID PRN PRN Reason: Constipation Simvastatin (Zocor) 20 mg PO BEDTIME [facility] Last Admin: 12/24/16 20:19 Dose: 20 mg Spironolactone (Aldactone) 25 mg PO DAILY [facility] Last Admin: 12/24/16 10:30 Dose: 25 mg Tamsulosin HCl (Flomax) 0.4 mg PO DAILY [facility] Last Admin: 12/24/16 10:30 Dose: 0.4 mg Discontinued Medications Hydrocodone Bitart/Acetaminophen ([place] 325-5 Mg) 1 tab PO Q4H PRN PRN Reason: Pain (moderate 4-6) Albuterol/Ipratropium (Duoneb 3.0-0.5 Mg/3 Ml) 3 ml NEB ONETIME ONE Stop: 12/23/16 12:40 Last Admin: 12/23/16 12:51 Dose: 3 ml Bupivacaine HCl (Marcaine 0.25%) Confirm Administered Dose 30 ml .ROUTE .STK- MED ONE Stop: 12/24/16 05:46 Bupivacaine HCl (Marcaine 0.25%) Confirm Administered Dose 30 ml .ROUTE .STK- MED ONE Stop: 12/24/16 07:38 Last Admin: 12/24/16 08:28 Dose: 30 ml Cefazolin Sodium (Ancef) Confirm Administered Dose 2 gm .ROUTE .STK-MED ONE Stop: 12/24/16 05:46 Last Admin: 12/24/16 08:21 Dose: 2 gm Cefazolin Sodium (Ancef) Confirm Administered Dose 2 gm .ROUTE .STK-MED ONE Stop: 12/24/16 06:30 Morphine Sulfate 8 mg/Epinephrine HCl 0.3 mg/Cefuroxime Sodium 750 mg/Ketorolac Tromethamine 30 mg/Sodium Chloride 27.9 ml 0 mg .XX ONETIME ONE Stop: 12/24/16 07:21 Last Admin: 12/24/16 10:32 Dose: Not Given Diphenhydramine HCl (Benadryl) 25 mg IVPUSH Q6H PRN PRN Reason: Pruritis Stop: 12/24/16 12:00 Enoxaparin Sodium (Lovenox) 40 mg SUBCUT DAILY@1999 [facility] Stop: 12/24/16 23:59 Last Admin: 12/24/16 20:19 Dose: 40 mg Fentanyl (Sublimaze) Confirm Administered Dose 100 mcg .ROUTE .STK-MED ONE Stop: 12/24/16 06:22 Fentanyl (Sublimaze) 50 mcg IVPUSH Q5M PRN PRN Reason: Pain Stop: 12/24/16 09:40 Hydromorphone HCl (Dilaudid) 0.5 mg IVPUSH ONETIME ONE Stop: 12/23/16 12:03 Last Admin: 12/23/16 12:12 Dose: 0.5 mg Hydromorphone HCl (Dilaudid) 0.5 mg IVPUSH ONETIME ONE Stop: 12/23/16 13:03 Last Admin: 12/23/16 13:10 Dose: 0.5 mg Sodium Chloride (Normal Saline) 500 mls @ 999 mls/hr IV .BOLUS ONE Stop: 12/23/16 12:32 Last Admin: 12/23/16 12:11 Dose: 999 mls/hr Sodium Chloride (Normal Saline) 1,000 mls @ 150 mls/hr IV ASDIRECTED [facility] Last Admin: 12/23/16 23:49 Dose: 150 mls/hr Lidocaine HCl (Xylocaine-Mpf 1%) Confirm Administered Dose 2 mls @ as directed .ROUTE .STK-MED ONE Stop: 12/24/16 06:30 Lactated Ringer's (Ringers, Lactated) Confirm Administered Dose 1,000 mls @ as directed .ROUTE .STK-MED ONE Stop: 12/24/16 09:00 Lactated Ringer's (Ringers, Lactated) Confirm Administered Dose 1,000 mls @ as directed .ROUTE .STK-MED ONE Stop: 12/24/16 09:00 Iodine (Iodine 2% Mild Tincture) Confirm Administered Dose 30 ml .ROUTE .STK- MED ONE Stop: 12/24/16 05:46 Last Admin: 12/24/16 08:18 Dose: 18 ml Ketamine HCl (Ketalar) Confirm Administered Dose 500 mg .ROUTE .STK-MED ONE Stop: 12/24/16 06:22 Meperidine HCl (Demerol) 12.5 mg IVPUSH ONETIME PRN PRN Reason: Shivering Stop: 12/24/16 12:00 Midazolam HCl (Versed 1 Mg/Ml) Confirm Administered Dose 2 mg .ROUTE .STK-MED ONE Stop: 12/24/16 06:22 Morphine Sulfate (Duramorph Pf) Confirm Administered Dose 10 mg .ROUTE .STK-MED ONE Stop: 12/24/16 06:34 Naloxone HCl (Narcan) 0.1 mg IVPUSH Q5M PRN PRN Reason: Oversedation Stop: 12/24/16 09:16 Ondansetron HCl (Zofran) Confirm Administered Dose 4 mg .ROUTE .STK-MED ONE Stop: 06/21/17 06:30 Ondansetron HCl (Zofran) 4 mg IVPUSH ONETIME PRN PRN Reason: Nausea/Vomiting Stop: 12/24/16 12:00 Oxycodone HCl (Oxycodone) 10 mg PO ONETIME ONE Stop: 12/23/16 20:38 Last Admin: 12/23/16 20:55 Dose: 10 mg Phenylephrine HCl (Phenylephrine In Ns 100 Mcg/Ml) Confirm Administered Dose 1 mg .ROUTE .STK-MED ONE Stop: 12/24/16 08:09 Pneumococcal Polyvalent Vaccine (Pneumovax 23) 0.5 ml IM .ONCE ONE Stop: 12/25/16 06:47 Propofol (Diprivan 20 Ml) Confirm Administered Dose 400 mg .ROUTE .STK-MED ONE Stop: 12/24/16 06:22 Simvastatin (Zocor) 20 mg PO DAILY [facility] Tranexamic Acid (Cyklokapron) Confirm Administered Dose 1,000 mg .ROUTE .STK- MED ONE Stop: 12/24/16 05:46 Last Admin: 12/24/16 08:38 Dose: 1,000 mg - Exam Quality Assessment: supplemental oxygen, DVT prophylaxis General: alert, oriented, cooperative, no acute distress HEENT: Pupils equal, Pupils reactive, EOMI, Mucous membr. moist/pink Neck: supple Lungs: Clear to auscultation, Normal respiratory effort, Decreased breath sounds (throughout) Cardiovascular: Regular Rate, Regular Rhythm Abdomen: bowel sounds present, soft, no tenderness, no distension (Male) Exam: Deferred Extremities: other (teds/scd's, ice to hip) Neurological: no new focal deficit Psy/Mental Status: alert, normal affect, normal mood - Problem List & Annotations (1) COPD (chronic obstructive pulmonary disease) SNOMED Code(s): 82577197 Code(s): J44.9 - CHRONIC OBSTRUCTIVE PULMONARY DISEASE, UNSPECIFIED Status : Acute Current Visit: Yes Qualifiers: COPD type: emphysema Emphysema type: panlobular Qualified Code(s): J43.1 - Panlobular emphysema (2) Foot drop, left foot SNOMED Code(s): 6202057, 38674257 Code(s): M21.372 - FOOT DROP, LEFT FOOT Status: Acute Current Visit: Yes (3) Fracture of neck of femur, hip SNOMED Code(s): 2234835 Code(s): S72.009A - FRACTURE OF UNSP PART OF NECK OF UNSP FEMUR, INIT Status: Acute Current Visit: Yes - Problem List Review Problem List Initiated/Reviewed/Updated: Yes - My Orders Last 24 Hours: My Active Orders 12/24/16 13:38 Turn, Cough, Deep Breathe [RC] Q2HWA 12/24/16 21:00 Simvastatin [Zocor] 20 mg PO BEDTIME 12/25/16 06:15 MAGNESIUM [CHEM] AM - Plan Plan:: Impression: POD #2- Rt JUVE with Dr. Smalls- s/p fall with femoral neck fx - Pain managment and DVT prophylax per primary team - PT/OT - RT/IS - VSS- on supplemental oxygen - Hgb 9.7 today COPD patient without documented CAD, able to do at least 4 METS -may proceed to surgery - RT/IS/C&DB, nebs prn - Oxygen PRN to keep sats >90% - Nicotine patch Plan: Doing well postoperatively Daily labs Home meds SW/CM for DC planning; patient is home alone- may need SNF rehab stay, pending progress--plans for [facility] stay at [place], DC likely tomorrow. PT/OT DVT/GI prophylaxis Patient is full code status
--- NOTE | 2016-12-25 09:01 | PCM48HPAN ---
Post Anesthesia Note - EVALUATION WITHIN 48HRS OF ANESTHETIC Vital Signs in Normal Range: Yes Patient Participated in Evaluation: Yes Respiratory Function Stable: Yes Airway Patent: Yes Cardiovascular Function Stable: Yes Hydration Status Stable: Yes Pain Control Satisfactory: Yes Nausea and Vomiting Control Satisfactory: Yes Mental Status Recovered: Yes
[2016-12-25] MEDS: DULoxetine 30 MG Cap PO SCH (09:45)
[2016-12-25] MEDS: Spironolactone 25 MG Tab PO SCH (09:45)
[2016-12-25] MEDS: Famotidine 20 MG Tab PO SCH ×2 (09:45→21:08)
[2016-12-25] MEDS: Aspirin 325 MG Tab.EC PO SCH ×2 (09:45→21:09)
[2016-12-25] MEDS: Remove Patch **NICOTINE TRDERM SCH (09:46)
[2016-12-25] MEDS: Docusate Sodium 100 MG Cap PO SCH ×2 (09:46→21:08)
[2016-12-25] MEDS: Tamsulosin 0.4 MG Cap.ER PO SCH (09:46)
[2016-12-25] MEDS: Nicotine 21 MG/24 Hr Patch TRDERM SCH (09:46)
--- NOTE | 2016-12-25 11:56 | PCM.SURGPN ---
- General Info Date of Service: 12/25/16 POD#: 1 Functional Status: Reports: pain controlled, tolerating diet, ambulating, urinating. Denies: new symptoms - Review of Systems Musculoskeletal: Reports: other (The pt is progressing well with therapy.) - Patient Data Vitals - most recent: Last Vital Signs Temp 99.1 F 12/25/16 08:01 Pulse 79 12/24/16 10:31 Resp 12 12/25/16 08:01 BP 139/71 12/25/16 08:01 Pulse Ox 91 L 12/25/16 08:01 Weight - most recent: 168 lb 8 oz I&O - last 24 hours: Intake & Output 12/24/16 12/25/16 12/25/16 22:59 06:59 14:59 Intake Total 1140 500 240 Output Total 1300 300 Balance -160 200 240 Lab Results last 24 hrs: Laboratory Results - last 24 hr 12/25/16 12/25/16 12/25/16 Range/Units 06:15 06:15 06:15 WBC 8.06 (4.23-9.07) K/mm3 RBC 3.32 L (4.63-6.08) M/mm3 Hgb 9.7 L (13.7-17.5) gm/L Hct 31.1 L (40.1-51.0) % MCV 93.7 H (79.0-92.2) fl MCH 29.2 (25.7-32.2) pg MCHC 31.2 L (32.2-35.5) g/dl RDW Std Deviation 49.3 H (35.1-43.9) fL Plt Count 111 L (163-337) K/mm3 MPV 10.0 (9.4-12.3) fl Neut % (Auto) 76.4 H (34.0-67.9) % Lymph % (Auto) 12.2 L (21.8-53.1) % [place] % (Auto) 5.7 (5.3-12.2) % Eos % (Auto) 5.2 (0.8-7.0) Baso % (Auto) 0.4 (0.1-1.2) % Neut # (Auto) 6.16 H (1.78-5.38) K/mm3 Lymph # (Auto) 0.98 L (1.32-3.57) K/mm3 [place] # (Auto) 0.46 (0.30-0.82) K/mm3 Eos # (Auto) 0.42 (0.04-0.54) K/mm3 Baso # (Auto) 0.03 (0.01-0.08) K/mm3 Sodium 136 (136-145) mEq/L Potassium 4.8 (3.5-5.1) mEq/L Chloride 104 (98-107) mEq/L Carbon Dioxide 26 (21-32) mEq/L Anion Gap 10.8 (5-15) BUN 20 H (7-18) mg/dL Creatinine 1.1 (0.7-1.3) mg/dL Est Cr Clr Drug Dosing 65.62 mL/min Estimated GFR (MDRD) > 60 (>60) mL/min BUN/Creatinine Ratio 18.2 H (14-18) Glucose 109 (83-115) mg/dL Calcium 7.7 L (8.5-10.1) mg/dL Magnesium 2.0 (1.8-2.4) mg/dl Med Orders - Current: Current Medications Albuterol (Proventil Hfa) 0 gm INH QID PRN PRN Reason: Dyspnea Last Admin: 12/24/16 06:46 Dose: 2 puff Albuterol/Ipratropium (Duoneb 3.0-0.5 Mg/3 Ml) 2.5 ml NEB QID PRN PRN Reason: Shortness of Breath Aspirin (Ecotrin) 325 mg PO BID [facility] Last Admin: 12/25/16 09:45 Dose: 325 mg Bisacodyl (Dulcolax) 5 mg PO DAILY PRN PRN Reason: Constipation Docusate Sodium (Colace) 100 mg PO BID [facility] Last Admin: 12/25/16 09:46 Dose: 100 mg Duloxetine HCl (Cymbalta) 90 mg PO DAILY [facility] Last Admin: 12/25/16 09:45 Dose: 90 mg Famotidine (Pepcid) 20 mg PO BID [facility] Last Admin: 12/25/16 09:45 Dose: 20 mg Hydromorphone HCl (Dilaudid) 1 mg IVPUSH Q4H PRN PRN Reason: Pain (severe 7-10) Last Admin: 06/20/17 20:56 Dose: 1 mg Magnesium Hydroxide (Milk Of Magnesia) 30 ml PO BID PRN PRN Reason: Constipation Miscellaneous Information (Remove Patch) 0 ea TRDERM DAILY [facility] Last Admin: 12/25/16 09:46 Dose: 1 ea Multivitamins (Thera) 1 each PO WITHBREAKFAST [facility] Last Admin: 12/25/16 06:06 Dose: 1 each Neomycin/Polymyxin/Bacitr/Hydrocort (Cortisporin Ophth Oint) 0 gm EYEBOTH TID PRN PRN Reason: Other Nicotine (Habitrol) 21 mg TRDERM DAILY [facility] Last Admin: 12/25/16 09:46 Dose: 21 mg Ondansetron HCl (Zofran) 4 mg IVPUSH Q6H PRN PRN Reason: Nausea/Vomiting Oxycodone/Acetaminophen (Percocet 325-5 Mg) 1 - 2 tab PO Q4H PRN PRN Reason: Pain Last Admin: 12/25/16 09:46 Dose: 2 tab Senna (Senna) 8.6 mg PO BID PRN PRN Reason: Constipation Simvastatin (Zocor) 20 mg PO BEDTIME [facility] Last Admin: 12/24/16 20:19 Dose: 20 mg Spironolactone (Aldactone) 25 mg PO DAILY [facility] Last Admin: 12/25/16 09:45 Dose: 25 mg Tamsulosin HCl (Flomax) 0.4 mg PO DAILY [facility] Last Admin: 12/25/16 09:46 Dose: 0.4 mg Discontinued Medications Hydrocodone Bitart/Acetaminophen ([place] 325-5 Mg) 1 tab PO Q4H PRN PRN Reason: Pain (moderate 4-6) Albuterol/Ipratropium (Duoneb 3.0-0.5 Mg/3 Ml) 3 ml NEB ONETIME ONE Stop: 12/23/16 12:40 Last Admin: 12/23/16 12:51 Dose: 3 ml Bupivacaine HCl (Marcaine 0.25%) Confirm Administered Dose 30 ml .ROUTE .STK- MED ONE Stop: 12/24/16 05:46 Bupivacaine HCl (Marcaine 0.25%) Confirm Administered Dose 30 ml .ROUTE .STK- MED ONE Stop: 12/24/16 07:38 Last Admin: 12/24/16 08:28 Dose: 30 ml Cefazolin Sodium (Ancef) Confirm Administered Dose 2 gm .ROUTE .STK-MED ONE Stop: 12/24/16 05:46 Last Admin: 12/24/16 08:21 Dose: 2 gm Cefazolin Sodium (Ancef) Confirm Administered Dose 2 gm .ROUTE .STK-MED ONE Stop: 12/24/16 06:30 Morphine Sulfate 8 mg/Epinephrine HCl 0.3 mg/Cefuroxime Sodium 750 mg/Ketorolac Tromethamine 30 mg/Sodium Chloride 27.9 ml 0 mg .XX ONETIME ONE Stop: 12/24/16 07:21 Last Admin: 12/24/16 10:32 Dose: Not Given Diphenhydramine HCl (Benadryl) 25 mg IVPUSH Q6H PRN PRN Reason: Pruritis Stop: 12/24/16 12:00 Enoxaparin Sodium (Lovenox) 40 mg SUBCUT DAILY@1999 [facility] Stop: 12/24/16 23:59 Last Admin: 12/24/16 20:19 Dose: 40 mg Fentanyl (Sublimaze) Confirm Administered Dose 100 mcg .ROUTE .STK-MED ONE Stop: 12/24/16 06:22 Fentanyl (Sublimaze) 50 mcg IVPUSH Q5M PRN PRN Reason: Pain Stop: 12/24/16 09:40 Hydromorphone HCl (Dilaudid) 0.5 mg IVPUSH ONETIME ONE Stop: 12/23/16 12:03 Last Admin: 12/23/16 12:12 Dose: 0.5 mg Hydromorphone HCl (Dilaudid) 0.5 mg IVPUSH ONETIME ONE Stop: 12/23/16 13:03 Last Admin: 12/23/16 13:10 Dose: 0.5 mg Sodium Chloride (Normal Saline) 500 mls @ 999 mls/hr IV .BOLUS ONE Stop: 12/23/16 12:32 Last Admin: 12/23/16 12:11 Dose: 999 mls/hr Sodium Chloride (Normal Saline) 1,000 mls @ 150 mls/hr IV ASDIRECTED [facility] Last Admin: 12/23/16 23:49 Dose: 150 mls/hr Lidocaine HCl (Xylocaine-Mpf 1%) Confirm Administered Dose 2 mls @ as directed .ROUTE .STK-MED ONE Stop: 12/24/16 06:30 Cefazolin Sodium/Dextrose 2 gm (/ Premix) 50 mls @ 100 mls/hr IV Q8H [facility] Stop: 12/25/16 07:29 Last Admin: 12/25/16 06:06 Dose: 100 mls/hr Lactated Ringer's (Ringers, Lactated) Confirm Administered Dose 1,000 mls @ as directed .ROUTE .STK-MED ONE Stop: 12/24/16 09:00 Lactated Ringer's (Ringers, Lactated) Confirm Administered Dose 1,000 mls @ as directed .ROUTE .STK-MED ONE Stop: 12/24/16 09:00 Iodine (Iodine 2% Mild Tincture) Confirm Administered Dose 30 ml .ROUTE .STK- MED ONE Stop: 12/24/16 05:46 Last Admin: 12/24/16 08:18 Dose: 18 ml Ketamine HCl (Ketalar) Confirm Administered Dose 500 mg .ROUTE .STK-MED ONE Stop: 12/24/16 06:22 Meperidine HCl (Demerol) 12.5 mg IVPUSH ONETIME PRN PRN Reason: Shivering Stop: 12/24/16 12:00 Midazolam HCl (Versed 1 Mg/Ml) Confirm Administered Dose 2 mg .ROUTE .STK-MED ONE Stop: 12/24/16 06:22 Morphine Sulfate (Duramorph Pf) Confirm Administered Dose 10 mg .ROUTE .STK-MED ONE Stop: 12/24/16 06:34 Naloxone HCl (Narcan) 0.1 mg IVPUSH Q5M PRN PRN Reason: Oversedation Stop: 12/24/16 09:16 Ondansetron HCl (Zofran) Confirm Administered Dose 4 mg .ROUTE .STK-MED ONE Stop: 12/24/16 06:30 Ondansetron HCl (Zofran) 4 mg IVPUSH ONETIME PRN PRN Reason: Nausea/Vomiting Stop: 12/24/16 12:00 Oxycodone HCl (Oxycodone) 10 mg PO ONETIME ONE Stop: 12/23/16 20:38 Last Admin: 12/23/16 20:55 Dose: 10 mg Phenylephrine HCl (Phenylephrine In Ns 100 Mcg/Ml) Confirm Administered Dose 1 mg .ROUTE .STK-MED ONE Stop: 12/24/16 08:09 Pneumococcal Polyvalent Vaccine (Pneumovax 23) 0.5 ml IM .ONCE ONE Stop: 12/25/16 06:47 Last Admin: 12/25/16 11:53 Dose: 0.5 ml Propofol (Diprivan 20 Ml) Confirm Administered Dose 400 mg .ROUTE .STK-MED ONE Stop: 12/24/16 06:22 Simvastatin (Zocor) 20 mg PO DAILY [facility] Tranexamic Acid (Cyklokapron) Confirm Administered Dose 1,000 mg .ROUTE .STK- MED ONE Stop: 12/24/16 05:46 Last Admin: 12/24/16 08:38 Dose: 1,000 mg - Exam Wound/Incisions: dressing dry and intact General: alert, cooperative, no acute distress Lungs: Normal respiratory effort Extremities: normal pulses, no calf tenderness, other (NVS intact for RLE. Christa's negative.) - Problem List Review Problem List Initiated/Reviewed/Updated: Yes - My Orders Last 24 Hours: Active Orders 24 hr Category Date Time Status Turn, Cough, Deep Breathe [RC] Q2HWA Care 12/24/16 13:38 Active Regular Diet [DIET] Diet 12/24/16 Lunch Active BMP [BASIC METABOLIC PANEL,BMP] [CHEM] DAILY Lab 12/26/16 05:00 Ordered BMP [BASIC METABOLIC PANEL,BMP] [CHEM] DAILY Lab 12/27/16 05:00 Ordered CBC W/O DIFF,HEMOGRAM [HEME] MOTH@0700 Lab 12/29/16 07:00 Ordered CBC W/O DIFF,HEMOGRAM [HEME] MOTH@0700 Lab 01/01/17 07:00 Ordered CBC W/O DIFF,HEMOGRAM [HEME] MOTH@0700 Lab 01/05/17 07:00 Ordered CBC W/O DIFF,HEMOGRAM [HEME] MOTH@0700 Lab 01/08/17 07:00 Ordered CBC W/O DIFF,HEMOGRAM [HEME] MOTH@0700 Lab 01/12/17 07:00 Ordered CBC WITH AUTO DIFF [HEME] DAILY Lab 12/26/16 05:00 Ordered CBC WITH AUTO DIFF [HEME] DAILY Lab 12/27/16 05:00 Ordered Multivitamins,Therapeutic [Thera] Med 12/25/16 07:00 Active 1 each PO WITHBREAKFAST Simvastatin [Zocor] Med 12/24/16 21:00 Active 20 mg PO BEDTIME Medication Orders Albuterol (Proventil Hfa) 0 gm INH QID PRN PRN Reason: Dyspnea Last Admin: 12/24/16 06:46 Dose: 2 puff Admin: 12/23/16 21:09 Dose: 2 puff Albuterol/Ipratropium (Duoneb 3.0-0.5 Mg/3 Ml) 2.5 ml NEB QID PRN PRN Reason: Shortness of Breath Aspirin (Ecotrin) 325 mg PO BID [facility] Last Admin: 12/25/16 09:45 Dose: 325 mg Admin: 12/24/16 20:19 Dose: 325 mg Admin: 12/24/16 10:37 Dose: 325 mg Bisacodyl (Dulcolax) 5 mg PO DAILY PRN PRN Reason: Constipation Docusate Sodium (Colace) 100 mg PO BID [facility] Last Admin: 12/25/16 09:46 Dose: 100 mg Admin: 12/24/16 20:19 Dose: 100 mg Admin: 12/24/16 10:31 Dose: Duloxetine HCl (Cymbalta) 90 mg PO DAILY [facility] Last Admin: 12/25/16 09:45 Dose: 90 mg Admin: 12/24/16 10:30 Dose: 90 mg Famotidine (Pepcid) 20 mg PO BID [facility] Last Admin: 12/25/16 09:45 Dose: 20 mg Admin: 12/24/16 20:19 Dose: 20 mg Admin: 12/24/16 10:31 Dose: Hydromorphone HCl (Dilaudid) 1 mg IVPUSH Q4H PRN PRN Reason: Pain (severe 7-10) Last Admin: 12/23/16 20:56 Dose: 1 mg Admin: 12/23/16 16:55 Dose: 1 mg Magnesium Hydroxide (Milk Of Magnesia) 30 ml PO BID PRN PRN Reason: Constipation Miscellaneous Information (Remove Patch) 0 ea TRDERM DAILY [facility] Last Admin: 12/25/16 09:46 Dose: 1 ea Admin: 12/24/16 10:31 Dose: 1 ea Multivitamins (Thera) 1 each PO WITHBREAKFAST [facility] Last Admin: 12/25/16 06:06 Dose: 1 each Neomycin/Polymyxin/Bacitr/Hydrocort (Cortisporin Ophth Oint) 0 gm EYEBOTH TID PRN PRN Reason: Other Nicotine (Habitrol) 21 mg TRDERM DAILY [facility] Last Admin: 12/25/16 09:46 Dose: 21 mg Admin: 12/24/16 10:30 Dose: 21 mg Admin: 12/23/16 18:41 Dose: 21 mg Ondansetron HCl (Zofran) 4 mg IVPUSH Q6H PRN PRN Reason: Nausea/Vomiting Oxycodone/Acetaminophen (Percocet 325-5 Mg) 1 - 2 tab PO Q4H PRN PRN Reason: Pain Last Admin: 12/25/16 09:46 Dose: 2 tab Admin: 12/25/16 06:05 Dose: 2 tab Admin: 12/24/16 23:50 Dose: 2 tab Admin: 12/24/16 18:36 Dose: 2 tab Admin: 12/24/16 14:48 Dose: 2 tab Admin: 12/24/16 10:31 Dose: 2 tab Admin: 12/24/16 04:36 Dose: 2 tab Admin: 12/23/16 23:48 Dose: 2 tab Senna (Senna) 8.6 mg PO BID PRN PRN Reason: Constipation Simvastatin (Zocor) 20 mg PO BEDTIME [facility] Last Admin: 12/24/16 20:19 Dose: 20 mg Spironolactone (Aldactone) 25 mg PO DAILY [facility] Last Admin: 12/25/16 09:45 Dose: 25 mg Admin: 12/24/16 10:30 Dose: 25 mg Tamsulosin HCl (Flomax) 0.4 mg PO DAILY [facility] Last Admin: 12/25/16 09:46 Dose: 0.4 mg Admin: 12/24/16 10:30 Dose: 0.4 mg - Assessment Assessment (Free Text/Narrative):: POD#1 - right JUVE for right femoral neck fx - Plan Plan (Free Text/Narrative):: 1. ASA 325mg BID for VTE prophylaxis. SCDs. TEDs. 2. Percocet for pain management. 3. Discharge to [facility] tomorrow. 4. The pt will remain in Hospital at this time while awaiting swingbed unit placement. 5. Further orders per Hospitalist service. 6. Continue with P.T. and O.T. 7. Hgb 9.[address] Smalls evaluated the pt today.
[2016-12-25] MEDS: Simvastatin 20 MG Tab PO SCH (21:09)
--- NOTE | 2016-12-25 22:35 | PCM.OPNOTE ---
- General Post-Op/Procedure Note Date of Surgery/Procedure: 12/24/16 Operative Procedure(s): right total hip arthroplasty Pre Op Diagnosis: displaced right femoral neck fracture Post-Op Diagnosis: Same Anesthesia Technique: Local, MAC, Spinal Primary Surgeon: Josef Smalls Anesthesia Provider: Codey Huddleston Director Radio: Caity Quintanilla Director Radio: Floridalma Art EBL in mLs: 400 Complications: None Condition: Good Free Text/Narrative:: Intake & Output 12/25/16 12/25/16 12/25/16 06:59 14:59 22:59 Intake Total 760 723 0508 Output Total 300 600 Balance [phone]
--- NOTE | 2016-12-25 23:27 | OR ---
DATE OF OPERATION: 12/24/2016 SURGEON: Josef Smalls MD OPERATION PERFORMED: Right total hip arthroplasty. PREOPERATIVE DIAGNOSIS: Displaced right femoral neck fracture. POSTOPERATIVE DIAGNOSIS: Displaced right femoral neck fracture. ANESTHESIA: Local MAC with spinal. ANESTHESIA PROVIDER: Codey Huddleston. ASSISTANTS: Caity Quintanilla PA-C and Floridalma Art LPN. ESTIMATED BLOOD LOSS: 400 mL. COMPLICATIONS: None. CONDITION: Stable. IMPLANTS: 1. Camila size 58 Tritanium solid acetabular cup. 2. Camila size 7 Accolate II stem. 3. Size 46 mm MDM with acetabular liner. 4. 53 x 28 mm MDM components with 28 mm +12 component. DESCRIPTION OF PROCEDURE: The patient was identified in the preop holding area. Proper site was marked and identified by the surgeon. The patient was taken back to the operating theater where after adequate anesthesia, the patient was placed in a left lateral decubitus position. Axillary wedge was placed and all bony prominences were well padded and then the pegs were placed and made sure to be padded. At this time, the right hip was then sterilely prepped and draped in the usual sterile fashion. OR time-out was performed. The patient received 2 g IV Ancef. Standard posterior incision was made centered over the greater trochanter. IT band and gluteal fascia was incised along the incisional length. Short external rotators were identified and takedown of the piriformis and short external rotators were done down to the level of the lesser trochanter. At this time, a corkscrew was used and the hip was dislocated along with fracture. The femoral head was sized on the back table and a clean up cut was made on the femoral neck. Attention was turned to the acetabulum, both posterior and anterior acetabular retractors were placed. The pulvinar and remaining labrum were removed. Starting with a 50 reamer, I was able to ream up to a 57 for a 58 mm cup. The trial was found to have adequate fixation. A 58 mm Tritanium Camila acetabular cup was then impacted into place in roughly neutral anteversion and roughly 45 degrees of abduction. At this time, the 46 mm MDM liner was impacted into place. Attention was turned to the femur. The femoral elevator was placed. The box chisel was used out laterally and the starter awl was placed down the canal. Starting with a size 0 broach, I was able to broach up to a size 7 and was found to be rotationally and vertically stable. I trialed a standard +0 head and neck to begin, but this was found to be short, +12 was then trialed and was found to be adequate spiritism of leg lengths. At this time, a +12, 28 mm head with an MDM component were constructed on the back table and then were impacted onto the size 7 Accolate II stem. After it had been placed, hip was then reduced. It was found to have adequate range of motion with no signs of instability. A 1 L dilute Betadine solution was irrigated through the hip along with 3 L pulse lavage irrigation with Ancef. Two #1 Ethibond suture was used for closure of the short external rotators and posterior capsule. #2 barbed suture was used for closure of the IT band and gluteal fascia. 2-0 Vicryl was used subcutaneously and Prineo was used for the skin. The patient tolerated the procedure well and sent to PACU in stable condition. MMODALIS /[id number]
[2016-12-26] MEDS: Acetaminophen/oxyCODONE 325-5 MG Tab PO PRN ×2 (02:37→06:15)
[2016-12-26] MEDS: Multivitamins,Therapeutic Tab PO SCH (06:15)
--- NOTE | 2016-12-26 06:25 | PCM.DCSUM1 ---
<MatthiasdonnYessi siegel M - Last Filed: 12/26/16 06:25> Discharge Summary - Hospital Course Free Text/Narrative:: 71 year old male admitted to the hospitalist service from the ER, pre op for right hip fracture. He has left sided foot drop chronically and apparently fell on the day of admission. Hip XRAY done in [place] ED documented a right femoral neck fracture. Dr. Smalls was contacted who instructed patient to be evaluated in ED at [facility] for admission for surgical fixation of hip fracture. At the time of evaluation, he has minimal pain. Risk stratification was completed preoperatively, patient with hx of COPD, tobacco use. He underwent rt JUVE. Postoperatively he did very well with good pain control, no nausea, eating, voiding and moving bowels. He worked with PT/ OT. He lives at home alone. He had mild postoperative anemia with hgb to 9.7, asymptomatic. He will be [facility]hab [facility]. - Discharge Data Discharge Date: 12/26/16 (admit date 12/23/16) Discharge Disposition: DC/Tfer to SNF 03 Condition: Good - Discharge Diagnosis/Problem(s) (1) S/P total hip arthroplasty SNOMED Code(s): 377332826644, 866227494529 ICD Code: Z96.649 - PRESENCE OF UNSPECIFIED ARTIFICIAL HIP JOINT Status: Acute Priority: High Qualifiers: Laterality: right Qualified Code(s): Z96.641 - Presence of right artificial hip joint (2) Fracture of neck of femur, hip SNOMED Code(s): 9364424 ICD Code: S72.009A - FRACTURE OF UNSP PART OF NECK OF UNSP FEMUR, INIT Status: Acute Priority: High (3) Foot drop, left foot SNOMED Code(s): 4195188, 83571322 ICD Code: M21.372 - FOOT DROP, LEFT FOOT Status: Chronic Priority: Medium (4) COPD (chronic obstructive pulmonary disease) SNOMED Code(s): 97074242 ICD Code: J44.9 - CHRONIC OBSTRUCTIVE PULMONARY DISEASE, UNSPECIFIED Status : Chronic Priority: Medium Qualifiers: COPD type: emphysema Emphysema type: panlobular Qualified Code(s): J43.1 - Panlobular emphysema (5) Postoperative anemia SNOMED Code(s): 147122807 ICD Code: D64.9 - ANEMIA, UNSPECIFIED Status: Acute Priority: High - Patient Summary/Data Operative Procedure(s) Performed: right total hip arthroplasty Complications: None Consults: Consultations 12/23/16 16:01 Consult to Manufacturing Coordinator [CONS] Routine 12/24/16 06:08 Consult to Physician [CONS] Routine 12/24/16 09:00 Consult to Occupational Therapy [OT Evaluation and Treatment] [CONS] Routine Consult to Physical Therapy [PT Evaluation and Treatment] [CONS] Routine Labs Pending at D/C: None Recommended Follow-up Testing/Procedures: Follow up with Dr. Smalls's office, [facility], as scheduled Follow up with PCP within one week of discharge. Planned Operative Procedure(s) after DC: None Hospital Course: As above - Patient Instructions Diet: Usual Diet as Tolerated Activity: Apply Ice, As Tolerated, Elevate Extremity, Full Weight Bearing Activity, Other: Total hip arthroplasty precautions Driving: Do Not Drive Showering/Bathing: May Shower Wound/Incision Care: Keep Operative Site/Wound Site Clean and Dry, Do NOT Change Dressing Notify Provider of: Fever, Increased Pain, Swelling and Redness, Drainage, Nausea and/or Vomiting Other/Special Instructions: Please get up and moving around every hour while awake. This helps to prevent blood clots. Please take 325mg aspirin TWICE DAILY - this also helps to prevent blood clots. The aspirin is being used for blood clot prevention and not for pain control, so please use the medication twice daily as directed. Please wear the MAY hose during the day and remove them at night. Please schedule for P.T. Complete the P.T. exercises that were instructed in the Hospital. Please use the pain medication as needed. The medication may cause drowsiness and/or constipation. You could use a stool softener like docusate sodium or Colace 100mg twice daily and/or a laxative like Miralax daily for constipation. Contact your primary care provider for further instructions if you are constipated. Try to wean from use of the pain medication as soon as able. Use the incentive spirometer often. Please place ice to the hip often. Please elevate the limb to decrease swelling. Keep the Mepilex dressing in place until follow-up. Please call [phone] with questions or concerns. - Discharge Plan Prescriptions/Med Rec: Acetaminophen/oxyCODONE [Percocet 325-5 MG] 1 - 2 tab PO Q4H PRN #60 tablet PRN Reason: Pain Albuterol/Ipratropium [DuoNeb 3.0-0.5 MG/3 ML] 2.5 ml NEB QID PRN #1 box PRN Reason: wheezing/SOB Aspirin [Ecotrin] 325 mg PO BID #84 tab.ec Ferrous Sulfate 325 mg PO DAILY #30 tablet Metoprolol Succinate [Toprol XL] 12.5 mg PO DAILY #30 tab.er Nicotine [Habitrol] 21 mg TRDERM DAILY #30 patch Home Medications: Home Meds Acetaminophen [Tylenol Extra Strength] 2 tab PO DAILY PRN 12/23/16 [History] Albuterol [Ventolin HFA] 2 puff INH QID PRN 12/23/16 [History] Calcium Carbonate/Vitamin D3 [Calcium 600 + Vit D 200] 2 cap PO DAILY 12/23/16 [ History] DULoxetine HCl [Cymbalta] 90 mg PO DAILY 12/23/16 [History] Hydrocort/Neomycin/Polymyxin B [Cortisporin Otic Soln] 3 drop EYEBOTH TID PRN [History] Magnesium Oxide 500 mg PO DAILY 12/23/16 [History] Multivitamin [Vyq-Aiyuki-Dsvat] 1 tab PO DAILY 12/23/16 [History] Silver Sulfadiazine [Silvadene 1% Cream 20 GM] 1 applic TOP BID 12/23/16 [ History] Simvastatin [Zocor] 20 mg PO DAILY 12/23/16 [History] Spironolactone [Aldactone] 1 tab PO DAILY 12/23/16 [History] Tamsulosin HCl 1 cap PO DAILY 12/23/16 [History] Triamcinolone Acetonide [Triamcinolone Acetonide 0.1% Crm] 1 applic TOP BID PRN 12/23/16 [History] Umeclidinium Brm/Vilanterol Tr [Anoro Ellipta 62.5-25 Mcg INH] 1 puff INH DAILY 12/23/16 [History] Acetaminophen/oxyCODONE [Percocet 325-5 MG] 1 - 2 tab PO Q4H PRN #60 tablet [Rx] Albuterol/Ipratropium [DuoNeb 3.0-0.5 MG/3 ML] 2.5 ml NEB QID PRN #1 box [Rx] Aspirin [Ecotrin] 325 mg PO BID #84 tab.ec 12/26/16 [Rx] Docusate Sodium [Colace] 100 mg PO BID cap 12/26/16 [Rx] Famotidine [Pepcid] 20 mg PO BID tablet 12/26/16 [Rx] Ferrous Sulfate 325 mg PO DAILY #30 tablet 12/26/16 [Rx] Metoprolol Succinate [Toprol XL] 12.5 mg PO DAILY #30 tab.er 12/26/16 [Rx] Nicotine [Habitrol] 21 mg TRDERM DAILY #30 patch 12/26/16 [Rx] Patient Handouts: Smoking Cessation, Tips for Success, Vavt-fu-Dclp, Smoking Hazards, Chronic Obstructive Pulmonary Disease, Vxbi-bm-[id number], Common Peroneal Nerve Entrapment With Rehab-SportsMed, Total Hip Replacement, [id number]-ai-[id number], Aspirin, ASA oral tablets, Total Hip Replacement, Care After, Gonl-wg-Lqwu Forms: ED Department Discharge Referrals: Juan Roblero MD [Primary Care Provider] - Caity Quintanilla PA-C [Physician Property Management Specialist] - 01/09/17 12:15 pm (Please attend the follow up appointment scheduled with Caity Quintanilla on 01/09/2017 at 1215) - Discharge Summary/Plan Comment DC Time >30 min.: Yes (40 min) - General Info Date of Service: 12/26/16 Admission Dx/Problem (Free Text: Admission Diagnosis/Problem Admission Diagnosis/Problem Fracture of bone POD #[address] Smalls s/p fall with femoral neck fx. Pain is well controlled. No nausea. Working with PT/OT. No concerns today. [facility]. Functional Status: Reports: pain controlled, tolerating diet, ambulating, urinating. Denies: new symptoms - Review of Systems General: Reports: No Symptoms HEENT: Reports: no symptoms Pulmonary: Reports: no symptoms Cardiovascular: Reports: No Symptoms Gastrointestinal: Reports: No symptoms Genitourinary: Reports: no symptoms Musculoskeletal: Reports: leg pain Skin: Reports: no symptoms Neurological: Reports: No Symptoms Psychiatric: Reports: no symptoms - Patient Data Vitals - Most Recent: Last Vital Signs Temp 98.2 F 12/26/16 02:37 Pulse 101 H 12/26/16 02:37 Resp 12 12/26/16 02:37 BP 153/73 H 12/26/16 02:37 Pulse Ox 92 L 12/26/16 02:37 Weight - Most Recent: 77.02 kg I&O - Last 24 hours: Intake & Output 12/25/16 12/25/16 12/26/16 14:59 22:59 06:59 Intake Total 240 1910 400 Output Total 600 1150 Balance 240 1310 -750 Lab Results - Last 24 hrs: Laboratory Results - last 24 hr 12/25/16 12/25/16 12/25/16 Range/Units 06:15 06:15 06:15 WBC 8.06 (4.23-9.07) K/mm3 RBC 3.32 L (4.63-6.08) M/mm3 Hgb 9.7 L (13.7-17.5) gm/L Hct 31.1 L (40.1-51.0) % MCV 93.7 H (79.0-92.2) fl MCH 29.2 (25.7-32.2) pg MCHC 31.2 L (32.2-35.5) g/dl RDW Std Deviation 49.3 H (35.1-43.9) fL Plt Count 111 L (163-337) K/mm3 MPV 10.0 (9.4-12.3) fl Neut % (Auto) 76.4 H (34.0-67.9) % Lymph % (Auto) 12.2 L (21.8-53.1) % [place] % (Auto) 5.7 (5.3-12.2) % Eos % (Auto) 5.2 (0.8-7.0) Baso % (Auto) 0.4 (0.1-1.2) % Neut # (Auto) 6.16 H (1.78-5.38) K/mm3 Lymph # (Auto) 0.98 L (1.32-3.57) K/mm3 [place] # (Auto) 0.46 (0.30-0.82) K/mm3 Eos # (Auto) 0.42 (0.04-0.54) K/mm3 Baso # (Auto) 0.03 (0.01-0.08) K/mm3 Sodium 136 (136-145) mEq/L Potassium 4.8 (3.5-5.1) mEq/L Chloride 104 (98-107) mEq/L Carbon Dioxide 26 (21-32) mEq/L Anion Gap 10.8 (5-15) BUN 20 H (7-18) mg/dL Creatinine 1.1 (0.7-1.3) mg/dL Est Cr Clr Drug Dosing 65.62 mL/min Estimated GFR (MDRD) > 60 (>60) mL/min BUN/Creatinine Ratio 18.2 H (14-18) Glucose 109 (83-115) mg/dL Calcium 7.7 L (8.5-10.1) mg/dL Magnesium 2.0 (1.8-2.4) mg/dl Med Orders - Current: Current Medications Albuterol (Proventil Hfa) 0 gm INH QID PRN PRN Reason: Dyspnea Last Admin: 12/24/16 06:46 Dose: 2 puff Albuterol/Ipratropium (Duoneb 3.0-0.5 Mg/3 Ml) 2.5 ml NEB QID PRN PRN Reason: Shortness of Breath Aspirin (Ecotrin) 325 mg PO BID [facility] Last Admin: 12/25/16 21:09 Dose: 325 mg Bisacodyl (Dulcolax) 5 mg PO DAILY PRN PRN Reason: Constipation Docusate Sodium (Colace) 100 mg PO BID [facility] Last Admin: 12/25/16 21:08 Dose: 100 mg Duloxetine HCl (Cymbalta) 90 mg PO DAILY [facility] Last Admin: 12/25/16 09:45 Dose: 90 mg Famotidine (Pepcid) 20 mg PO BID [facility] Last Admin: 12/25/16 21:08 Dose: 20 mg Hydromorphone HCl (Dilaudid) 1 mg IVPUSH Q4H PRN PRN Reason: Pain (severe 7-10) Last Admin: 12/23/16 20:56 Dose: 1 mg Magnesium Hydroxide (Milk Of Magnesia) 30 ml PO BID PRN PRN Reason: Constipation Metoprolol Succinate (Toprol Xl) 12.5 mg PO DAILY [facility] Miscellaneous Information (Remove Patch) 0 ea TRDERM DAILY [facility] Last Admin: 12/25/16 09:46 Dose: 1 ea Multivitamins (Thera) 1 each PO WITHBREAKFAST [facility] Last Admin: 12/26/16 06:15 Dose: 1 each Neomycin/Polymyxin/Bacitr/Hydrocort (Cortisporin Ophth Oint) 0 gm EYEBOTH TID PRN PRN Reason: Other Nicotine (Habitrol) 21 mg TRDERM DAILY [facility] Last Admin: 12/25/16 09:46 Dose: 21 mg Ondansetron HCl (Zofran) 4 mg IVPUSH Q6H PRN PRN Reason: Nausea/Vomiting Oxycodone/Acetaminophen (Percocet 325-5 Mg) 1 - 2 tab PO Q4H PRN PRN Reason: Pain Last Admin: 12/26/16 06:15 Dose: 2 tab Senna (Senna) 8.6 mg PO BID PRN PRN Reason: Constipation Simvastatin (Zocor) 20 mg PO BEDTIME [facility] Last Admin: 12/25/16 21:09 Dose: 20 mg Spironolactone (Aldactone) 25 mg PO DAILY [facility] Last Admin: 12/25/16 09:45 Dose: 25 mg Tamsulosin HCl (Flomax) 0.4 mg PO DAILY [facility] Last Admin: 12/25/16 09:46 Dose: 0.4 mg Discontinued Medications Hydrocodone Bitart/Acetaminophen ([place] 325-5 Mg) 1 tab PO Q4H PRN PRN Reason: Pain (moderate 4-6) Albuterol/Ipratropium (Duoneb 3.0-0.5 Mg/3 Ml) 3 ml NEB ONETIME ONE Stop: 12/23/16 12:40 Last Admin: 12/23/16 12:51 Dose: 3 ml Bupivacaine HCl (Marcaine 0.25%) Confirm Administered Dose 30 ml .ROUTE .STK- MED ONE Stop: 12/24/16 05:46 Bupivacaine HCl (Marcaine 0.25%) Confirm Administered Dose 30 ml .ROUTE .STK- MED ONE Stop: 12/24/16 07:38 Last Admin: 12/24/16 08:28 Dose: 30 ml Cefazolin Sodium (Ancef) Confirm Administered Dose 2 gm .ROUTE .STK-MED ONE Stop: 12/24/16 05:46 Last Admin: 12/24/16 08:21 Dose: 2 gm Cefazolin Sodium (Ancef) Confirm Administered Dose 2 gm .ROUTE .STK-MED ONE Stop: 12/24/16 06:30 Morphine Sulfate 8 mg/Epinephrine HCl 0.3 mg/Cefuroxime Sodium 750 mg/Ketorolac Tromethamine 30 mg/Sodium Chloride 27.9 ml 0 mg .XX ONETIME ONE Stop: 12/24/16 07:21 Last Admin: 12/24/16 10:32 Dose: Not Given Diphenhydramine HCl (Benadryl) 25 mg IVPUSH Q6H PRN PRN Reason: Pruritis Stop: 12/24/16 12:00 Enoxaparin Sodium (Lovenox) 40 mg SUBCUT DAILY@1999 [facility] Stop: 12/24/16 23:59 Last Admin: 12/24/16 20:19 Dose: 40 mg Fentanyl (Sublimaze) Confirm Administered Dose 100 mcg .ROUTE .STK-MED ONE Stop: 12/24/16 06:22 Fentanyl (Sublimaze) 50 mcg IVPUSH Q5M PRN PRN Reason: Pain Stop: 12/24/16 09:40 Hydromorphone HCl (Dilaudid) 0.5 mg IVPUSH ONETIME ONE Stop: 12/23/16 12:03 Last Admin: 12/23/16 12:12 Dose: 0.5 mg Hydromorphone HCl (Dilaudid) 0.5 mg IVPUSH ONETIME ONE Stop: 12/23/16 13:03 Last Admin: 12/23/16 13:10 Dose: 0.5 mg Sodium Chloride (Normal Saline) 500 mls @ 999 mls/hr IV .BOLUS ONE Stop: 12/23/16 12:32 Last Admin: 12/23/16 12:11 Dose: 999 mls/hr Sodium Chloride (Normal Saline) 1,000 mls @ 150 mls/hr IV ASDIRECTED [facility] Last Admin: 12/23/16 23:49 Dose: 150 mls/hr Lidocaine HCl (Xylocaine-Mpf 1%) Confirm Administered Dose 2 mls @ as directed .ROUTE .STK-MED ONE Stop: 12/24/16 06:30 Cefazolin Sodium/Dextrose 2 gm (/ Premix) 50 mls @ 100 mls/hr IV Q8H [facility] Stop: 12/25/16 07:29 Last Admin: 12/25/16 06:06 Dose: 100 mls/hr Lactated Ringer's (Ringers, Lactated) Confirm Administered Dose 1,000 mls @ as directed .ROUTE .STK-MED ONE Stop: 12/24/16 09:00 Lactated Ringer's (Ringers, Lactated) Confirm Administered Dose 1,000 mls @ as directed .ROUTE .STK-MED ONE Stop: 12/24/16 09:00 Iodine (Iodine 2% Mild Tincture) Confirm Administered Dose 30 ml .ROUTE .STK- MED ONE Stop: 12/24/16 05:46 Last Admin: 12/24/16 08:18 Dose: 18 ml Ketamine HCl (Ketalar) Confirm Administered Dose 500 mg .ROUTE .STK-MED ONE Stop: 12/24/16 06:22 Meperidine HCl (Demerol) 12.5 mg IVPUSH ONETIME PRN PRN Reason: Shivering Stop: 12/24/16 12:00 Midazolam HCl (Versed 1 Mg/Ml) Confirm Administered Dose 2 mg .ROUTE .STK-MED ONE Stop: 12/24/16 06:22 Morphine Sulfate (Duramorph Pf) Confirm Administered Dose 10 mg .ROUTE .STK-MED ONE Stop: 12/24/16 06:34 Naloxone HCl (Narcan) 0.1 mg IVPUSH Q5M PRN PRN Reason: Oversedation Stop: 12/24/16 09:16 Ondansetron HCl (Zofran) Confirm Administered Dose 4 mg .ROUTE .STK-MED ONE Stop: 12/24/16 06:30 Ondansetron HCl (Zofran) 4 mg IVPUSH ONETIME PRN PRN Reason: Nausea/Vomiting Stop: 12/24/16 12:00 Oxycodone HCl (Oxycodone) 10 mg PO ONETIME ONE Stop: 12/23/16 20:38 Last Admin: 12/23/16 20:55 Dose: 10 mg Phenylephrine HCl (Phenylephrine In Ns 100 Mcg/Ml) Confirm Administered Dose 1 mg .ROUTE .STK-MED ONE Stop: 12/24/16 08:09 Pneumococcal Polyvalent Vaccine (Pneumovax 23) 0.5 ml IM .ONCE ONE Stop: 12/25/16 06:47 Last Admin: 12/25/16 11:53 Dose: 0.5 ml Propofol (Diprivan 20 Ml) Confirm Administered Dose 400 mg .ROUTE .STK-MED ONE Stop: 12/24/16 06:22 Simvastatin (Zocor) 20 mg PO DAILY [facility] Tranexamic Acid (Cyklokapron) Confirm Administered Dose 1,000 mg .ROUTE .STK- MED ONE Stop: 12/24/16 05:46 Last Admin: 12/24/16 08:38 Dose: 1,000 mg - Exam Quality Assessment: Reports: DVT prophylaxis General: Reports: alert, oriented, cooperative, no acute distress HEENT: Reports: Pupils equal, Pupils reactive, EOMI, Mucous membr. moist/pink Neck: Reports: supple Lungs: Reports: Clear to auscultation, Normal respiratory effort, Decreased breath sounds (throughout) Cardiovascular: Reports: Regular Rate, Regular Rhythm Abdomen: Reports: bowel sounds present, soft, no tenderness (Male) Exam: Deferred Extremities: Reports: no edema Wound/Incisions: Reports: dressing dry and intact Neurological: Reports: no new focal deficit Psy/Mental Status: Reports: alert, normal affect, normal mood *Q Meaningful Use (DIS) - VTE *Q VTE Criteria *Q: - Stroke *Q Stroke Criteria *Q: - AMI *Q AMI Criteria *Q: <Ivy Velazco - Last Filed: 12/26/16 14:28> Discharge Summary - Hospital Course Free Text/Narrative:: DC to [facility], follow up as scheduled. - Discharge Diagnosis/Problem(s) (1) Foot drop, left foot SNOMED Code(s): 2724611, 14152918 ICD Code: M21.372 - FOOT DROP, LEFT FOOT Status: Chronic Priority: Medium (2) COPD (chronic obstructive pulmonary disease) SNOMED Code(s): 77988896 ICD Code: J44.9 - CHRONIC OBSTRUCTIVE PULMONARY DISEASE, UNSPECIFIED Status : Chronic Priority: Medium Qualifiers: COPD type: emphysema Emphysema type: panlobular Qualified Code(s): J43.1 - Panlobular emphysema (3) Fracture of neck of femur, hip SNOMED Code(s): 2315683 ICD Code: S72.009A - FRACTURE OF UNSP PART OF NECK OF UNSP FEMUR, INIT Status: Acute Priority: High - Patient Summary/Data Consults: Consultations 12/23/16 16:01 Consult to Manufacturing Coordinator [CONS] Routine 12/24/16 06:08 Consult to Physician [CONS] Routine 12/24/16 09:00 Consult to Occupational Therapy [OT Evaluation and Treatment] [CONS] Routine Consult to Physical Therapy [PT Evaluation and Treatment] [CONS] Routine - Patient Data Vitals - Most Recent: Last Vital Signs Temp 36.8 C 12/26/16 02:37 Pulse 101 H 12/26/16 07:59 Resp 12 12/26/16 02:37 BP 158/78 H 12/26/16 07:59 Pulse Ox 92 L 12/26/16 02:37 I&O - Last 24 hours: Intake & Output 12/25/16 12/26/16 12/26/16 22:59 06:59 14:59 Intake Total 1910 400 Output Total 600 1150 Balance 1310 -750 Lab Results - Last 24 hrs: Laboratory Results - last 24 hr 12/26/16 12/26/16 Range/Units 06:04 06:04 WBC 9.29 H (4.23-9.07) K/mm3 RBC 3.43 L (4.63-6.08) M/mm3 Hgb 10.1 L (13.7-17.5) gm/L Hct 31.6 L (40.1-51.0) % MCV 92.1 (79.0-92.2) fl MCH 29.4 (25.7-32.2) pg MCHC 32.0 L (32.2-35.5) g/dl RDW Std Deviation 48.1 H (35.1-43.9) fL Plt Count 141 L (163-337) K/mm3 MPV 10.1 (9.4-12.3) fl Neut % (Auto) 73.0 H (34.0-67.9) % Lymph % (Auto) 15.9 L (21.8-53.1) % [place] % (Auto) 5.9 (5.3-12.2) % Eos % (Auto) 4.7 (0.8-7.0) Baso % (Auto) 0.4 (0.1-1.2) % Neut # (Auto) 6.77 H (1.78-5.38) K/mm3 Lymph # (Auto) 1.48 (1.32-3.57) K/mm3 [place] # (Auto) 0.55 (0.30-0.82) K/mm3 Eos # (Auto) 0.44 (0.04-0.54) K/mm3 Baso # (Auto) 0.04 (0.01-0.08) K/mm3 Sodium 138 (136-145) mEq/L Potassium 4.4 (3.5-5.1) mEq/L Chloride 104 (98-107) mEq/L Carbon Dioxide 27 (21-32) mEq/L Anion Gap 11.4 (5-15) BUN 22 H (7-18) mg/dL Creatinine 1.1 (0.7-1.3) mg/dL Est Cr Clr Drug Dosing 66.13 mL/min Estimated GFR (MDRD) > 60 (>60) mL/min BUN/Creatinine Ratio 20.0 H (14-18) Glucose 121 H (83-115) mg/dL Calcium 8.3 L (8.5-10.1) mg/dL Med Orders - Current: Current Medications Discontinued Medications Hydrocodone Bitart/Acetaminophen ([place] 325-5 Mg) 1 tab PO Q4H PRN PRN Reason: Pain (moderate 4-6) Albuterol (Proventil Hfa) 0 gm INH QID PRN PRN Reason: Dyspnea Last Admin: 12/24/16 06:46 Dose: 2 puff Albuterol/Ipratropium (Duoneb 3.0-0.5 Mg/3 Ml) 3 ml NEB ONETIME ONE Stop: 12/23/16 12:40 Last Admin: 12/23/16 12:51 Dose: 3 ml Albuterol/Ipratropium (Duoneb 3.0-0.5 Mg/3 Ml) 2.5 ml NEB QID PRN PRN Reason: Shortness of Breath Aspirin (Ecotrin) 325 mg PO BID [facility] Last Admin: 12/26/16 08:00 Dose: 325 mg Bisacodyl (Dulcolax) 5 mg PO DAILY PRN PRN Reason: Constipation Bupivacaine HCl (Marcaine 0.25%) Confirm Administered Dose 30 ml .ROUTE .STK- MED ONE Stop: 12/24/16 05:46 Bupivacaine HCl (Marcaine 0.25%) Confirm Administered Dose 30 ml .ROUTE .STK- MED ONE Stop: 12/24/16 07:38 Last Admin: 12/24/16 08:28 Dose: 30 ml Cefazolin Sodium (Ancef) Confirm Administered Dose 2 gm .ROUTE .STK-MED ONE Stop: 12/24/16 05:46 Last Admin: 12/24/16 08:21 Dose: 2 gm Cefazolin Sodium (Ancef) Confirm Administered Dose 2 gm .ROUTE .STK-MED ONE Stop: 12/24/16 06:30 Morphine Sulfate 8 mg/Epinephrine HCl 0.3 mg/Cefuroxime Sodium 750 mg/Ketorolac Tromethamine 30 mg/Sodium Chloride 27.9 ml 0 mg .XX ONETIME ONE Stop: 12/24/16 07:21 Last Admin: 12/24/16 10:32 Dose: Not Given Diphenhydramine HCl (Benadryl) 25 mg IVPUSH Q6H PRN PRN Reason: Pruritis Stop: 12/24/16 12:00 Docusate Sodium (Colace) 100 mg PO BID [facility] Last Admin: 12/26/16 08:00 Dose: 100 mg Duloxetine HCl (Cymbalta) 90 mg PO DAILY [facility] Last Admin: 12/26/16 08:00 Dose: 90 mg Enoxaparin Sodium (Lovenox) 40 mg SUBCUT DAILY@1999 [facility] Stop: 12/24/16 23:59 Last Admin: 12/24/16 20:19 Dose: 40 mg Famotidine (Pepcid) 20 mg PO BID [facility] Last Admin: 12/26/16 08:00 Dose: 20 mg Fentanyl (Sublimaze) Confirm Administered Dose 100 mcg .ROUTE .STK-MED ONE Stop: 12/24/16 06:22 Fentanyl (Sublimaze) 50 mcg IVPUSH Q5M PRN PRN Reason: Pain Stop: 12/24/16 09:40 Hydromorphone HCl (Dilaudid) 0.5 mg IVPUSH ONETIME ONE Stop: 12/23/16 12:03 Last Admin: 12/23/16 12:12 Dose: 0.5 mg Hydromorphone HCl (Dilaudid) 0.5 mg IVPUSH ONETIME ONE Stop: 12/23/16 13:03 Last Admin: 12/23/16 13:10 Dose: 0.5 mg Hydromorphone HCl (Dilaudid) 1 mg IVPUSH Q4H PRN PRN Reason: Pain (severe 7-10) Last Admin: 12/23/16 20:56 Dose: 1 mg Sodium Chloride (Normal Saline) 500 mls @ 999 mls/hr IV .BOLUS ONE Stop: 12/23/16 12:32 Last Admin: 12/23/16 12:11 Dose: 999 mls/hr Sodium Chloride (Normal Saline) 1,000 mls @ 150 mls/hr IV ASDIRECTED [facility] Last Admin: 12/23/16 23:49 Dose: 150 mls/hr Lidocaine HCl (Xylocaine-Mpf 1%) Confirm Administered Dose 2 mls @ as directed .ROUTE .STK-MED ONE Stop: 12/24/16 06:30 Cefazolin Sodium/Dextrose 2 gm (/ Premix) 50 mls @ 100 mls/hr IV Q8H [facility] Stop: 12/25/16 07:29 Last Admin: 12/25/16 06:06 Dose: 100 mls/hr Lactated Ringer's (Ringers, Lactated) Confirm Administered Dose 1,000 mls @ as directed .ROUTE .STK-MED ONE Stop: 12/24/16 09:00 Lactated Ringer's (Ringers, Lactated) Confirm Administered Dose 1,000 mls @ as directed .ROUTE .STK-MED ONE Stop: 12/24/16 09:00 Iodine (Iodine 2% Mild Tincture) Confirm Administered Dose 30 ml .ROUTE .STK- MED ONE Stop: 12/24/16 05:46 Last Admin: 12/24/16 08:18 Dose: 18 ml Ketamine HCl (Ketalar) Confirm Administered Dose 500 mg .ROUTE .STK-MED ONE Stop: 12/24/16 06:22 Magnesium Hydroxide (Milk Of Magnesia) 30 ml PO BID PRN PRN Reason: Constipation Meperidine HCl (Demerol) 12.5 mg IVPUSH ONETIME PRN PRN Reason: Shivering Stop: 12/24/16 12:00 Metoprolol Succinate (Toprol Xl) 12.5 mg PO DAILY [facility] Last Admin: 12/26/16 08:01 Dose: Not Given Midazolam HCl (Versed 1 Mg/Ml) Confirm Administered Dose 2 mg .ROUTE .STK-MED ONE Stop: 12/24/16 06:22 Miscellaneous Information (Remove Patch) 0 ea TRDERM DAILY [facility] Last Admin: 12/26/16 08:00 Dose: 1 ea Morphine Sulfate (Duramorph Pf) Confirm Administered Dose 10 mg .ROUTE .STK-MED ONE Stop: 12/24/16 06:34 Multivitamins (Thera) 1 each PO WITHBREAKFAST [facility] Last Admin: 12/26/16 06:15 Dose: 1 each Naloxone HCl (Narcan) 0.1 mg IVPUSH Q5M PRN PRN Reason: Oversedation Stop: 12/24/16 09:16 Neomycin/Polymyxin/Bacitr/Hydrocort (Cortisporin Ophth Oint) 0 gm EYEBOTH TID PRN PRN Reason: Other Nicotine (Habitrol) 21 mg TRDERM DAILY [facility] Last Admin: 12/26/16 08:00 Dose: 21 mg Ondansetron HCl (Zofran) Confirm Administered Dose 4 mg .ROUTE .STK-MED ONE Stop: 12/24/16 06:30 Ondansetron HCl (Zofran) 4 mg IVPUSH Q6H PRN PRN Reason: Nausea/Vomiting Ondansetron HCl (Zofran) 4 mg IVPUSH ONETIME PRN PRN Reason: Nausea/Vomiting Stop: 12/24/16 12:00 Oxycodone HCl (Oxycodone) 10 mg PO ONETIME ONE Stop: 12/23/16 20:38 Last Admin: 12/23/16 20:55 Dose: 10 mg Oxycodone/Acetaminophen (Percocet 325-5 Mg) 1 - 2 tab PO Q4H PRN PRN Reason: Pain Last Admin: 12/26/16 06:15 Dose: 2 tab Phenylephrine HCl (Phenylephrine In Ns 100 Mcg/Ml) Confirm Administered Dose 1 mg .ROUTE .STK-MED ONE Stop: 12/24/16 08:09 Pneumococcal Polyvalent Vaccine (Pneumovax 23) 0.5 ml IM .ONCE ONE Stop: 12/25/16 06:47 Last Admin: 12/25/16 11:53 Dose: 0.5 ml Propofol (Diprivan 20 Ml) Confirm Administered Dose 400 mg .ROUTE .STK-MED ONE Stop: 12/24/16 06:22 Senna (Senna) 8.6 mg PO BID PRN PRN Reason: Constipation Simvastatin (Zocor) 20 mg PO DAILY [facility] Simvastatin (Zocor) 20 mg PO BEDTIME [facility] Last Admin: 12/25/16 21:09 Dose: 20 mg Spironolactone (Aldactone) 25 mg PO DAILY [facility] Last Admin: 12/26/16 08:00 Dose: 25 mg Tamsulosin HCl (Flomax) 0.4 mg PO DAILY [facility] Last Admin: 12/26/16 08:00 Dose: 0.4 mg Tranexamic Acid (Cyklokapron) Confirm Administered Dose 1,000 [address] .[address] .[facility] Stop: 12/24/16 05:46 Last Admin: 12/24/16 08:38 Dose: 1,000 mg *Q Meaningful Use (DIS) - VTE *Q VTE Criteria *Q: - Stroke *Q Stroke Criteria *Q: - AMI *Q AMI Criteria *Q:
[2016-12-26] MEDS: Metoprolol Succinate 25 MG Tab.ER PO SCH ×2 (07:59→08:01)
[2016-12-26] MEDS: Nicotine 21 MG/24 Hr Patch TRDERM SCH (08:00)
[2016-12-26] MEDS: Remove Patch **NICOTINE TRDERM SCH (08:00)
[2016-12-26] MEDS: DULoxetine 30 MG Cap PO SCH (08:00)
[2016-12-26] MEDS: Spironolactone 25 MG Tab PO SCH (08:00)
[2016-12-26] MEDS: Aspirin 325 MG Tab.EC PO SCH (08:00)
[2016-12-26] MEDS: Famotidine 20 MG Tab PO SCH (08:00)
[2016-12-26] MEDS: Docusate Sodium 100 MG Cap PO SCH (08:00)
[2016-12-26] MEDS: Tamsulosin 0.4 MG Cap.ER PO SCH (08:00)
[2016-12-26 08:01] VITALS: BP 158/78
--- NOTE | 2016-12-26 09:07 | PCM.SURGPN ---
- General Info Date of Service: 12/26/16 POD#: 2 Functional Status: Reports: pain controlled, tolerating diet, ambulating, urinating, other (The pt feels prepared for d/c to Swingbed Unit today.). Denies: new symptoms - Review of Systems General: Denies: Fever, Chills - Patient Data Vitals - most recent: Last Vital Signs Temp 98.2 F 12/26/16 02:37 Pulse 101 H 12/26/16 07:59 Resp 12 12/26/16 02:37 BP 158/78 H 12/26/16 07:59 Pulse Ox 92 L 12/26/16 02:37 Weight - most recent: 169 lb 12.8 oz I&O - last 24 hours: Intake & Output 12/25/16 12/26/16 12/26/16 22:59 06:59 14:59 Intake Total 1910 400 Output Total 600 1150 Balance 1310 -750 Lab Results last 24 hrs: Laboratory Results - last 24 hr 12/26/16 12/26/16 Range/Units 06:04 06:04 WBC 9.29 H (4.23-9.07) K/mm3 RBC 3.43 L (4.63-6.08) M/mm3 Hgb 10.1 L (13.7-17.5) gm/L Hct 31.6 L (40.1-51.0) % MCV 92.1 (79.0-92.2) fl MCH 29.4 (25.7-32.2) pg MCHC 32.0 L (32.2-35.5) g/dl RDW Std Deviation 48.1 H (35.1-43.9) fL Plt Count 141 L (163-337) K/mm3 MPV 10.1 (9.4-12.3) fl Neut % (Auto) 73.0 H (34.0-67.9) % Lymph % (Auto) 15.9 L (21.8-53.1) % [place] % (Auto) 5.9 (5.3-12.2) % Eos % (Auto) 4.7 (0.8-7.0) Baso % (Auto) 0.4 (0.1-1.2) % Neut # (Auto) 6.77 H (1.78-5.38) K/mm3 Lymph # (Auto) 1.48 (1.32-3.57) K/mm3 [place] # (Auto) 0.55 (0.30-0.82) K/mm3 Eos # (Auto) 0.44 (0.04-0.54) K/mm3 Baso # (Auto) 0.04 (0.01-0.08) K/mm3 Sodium 138 (136-145) mEq/L Potassium 4.4 (3.5-5.1) mEq/L Chloride 104 (98-107) mEq/L Carbon Dioxide 27 (21-32) mEq/L Anion Gap 11.4 (5-15) BUN 22 H (7-18) mg/dL Creatinine 1.1 (0.7-1.3) mg/dL Est Cr Clr Drug Dosing 66.13 mL/min Estimated GFR (MDRD) > 60 (>60) mL/min BUN/Creatinine Ratio 20.0 H (14-18) Glucose 121 H (83-115) mg/dL Calcium 8.3 L (8.5-10.1) mg/dL Med Orders - Current: Current Medications Discontinued Medications Hydrocodone Bitart/Acetaminophen ([place] 325-5 Mg) 1 tab PO Q4H PRN PRN Reason: Pain (moderate 4-6) Albuterol (Proventil Hfa) 0 gm INH QID PRN PRN Reason: Dyspnea Last Admin: 12/24/16 06:46 Dose: 2 puff Albuterol/Ipratropium (Duoneb 3.0-0.5 Mg/3 Ml) 3 ml NEB ONETIME ONE Stop: 12/23/16 12:40 Last Admin: 12/23/16 12:51 Dose: 3 ml Albuterol/Ipratropium (Duoneb 3.0-0.5 Mg/3 Ml) 2.5 ml NEB QID PRN PRN Reason: Shortness of Breath Aspirin (Ecotrin) 325 mg PO BID ROLY Last Admin: 12/26/16 08:00 Dose: 325 mg Bisacodyl (Dulcolax) 5 mg PO DAILY PRN PRN Reason: Constipation Bupivacaine HCl (Marcaine 0.25%) Confirm Administered Dose 30 ml .ROUTE .STK- MED ONE Stop: 12/24/16 05:46 Bupivacaine HCl (Marcaine 0.25%) Confirm Administered Dose 30 ml .ROUTE .STK- MED ONE Stop: 12/24/16 07:38 Last Admin: 12/24/16 08:28 Dose: 30 ml Cefazolin Sodium (Ancef) Confirm Administered Dose 2 gm .ROUTE .STK-MED ONE Stop: 12/24/16 05:46 Last Admin: 12/24/16 08:21 Dose: 2 gm Cefazolin Sodium (Ancef) Confirm Administered Dose 2 gm .ROUTE .STK-MED ONE Stop: 12/24/16 06:30 Morphine Sulfate 8 mg/Epinephrine HCl 0.3 mg/Cefuroxime Sodium 750 mg/Ketorolac Tromethamine 30 mg/Sodium Chloride 27.9 ml 0 mg .XX ONETIME ONE Stop: 12/24/16 07:21 Last Admin: 12/24/16 10:32 Dose: Not Given Diphenhydramine HCl (Benadryl) 25 mg IVPUSH Q6H PRN PRN Reason: Pruritis Stop: 12/24/16 12:00 Docusate Sodium (Colace) 100 mg PO BID [facility] Last Admin: 12/26/16 08:00 Dose: 100 mg Duloxetine HCl (Cymbalta) 90 mg PO DAILY [facility] Last Admin: 12/26/16 08:00 Dose: 90 mg Enoxaparin Sodium (Lovenox) 40 mg SUBCUT DAILY@1999 [facility] Stop: 12/24/16 23:59 Last Admin: 12/24/16 20:19 Dose: 40 mg Famotidine (Pepcid) 20 mg PO BID [facility] Last Admin: 12/26/16 08:00 Dose: 20 mg Fentanyl (Sublimaze) Confirm Administered Dose 100 mcg .ROUTE .STK-MED ONE Stop: 12/24/16 06:22 Fentanyl (Sublimaze) 50 mcg IVPUSH Q5M PRN PRN Reason: Pain Stop: 12/24/16 09:40 Hydromorphone HCl (Dilaudid) 0.5 mg IVPUSH ONETIME ONE Stop: 12/23/16 12:03 Last Admin: 12/23/16 12:12 Dose: 0.5 mg Hydromorphone HCl (Dilaudid) 0.5 mg IVPUSH ONETIME ONE Stop: 12/23/16 13:03 Last Admin: 12/23/16 13:10 Dose: 0.5 mg Hydromorphone HCl (Dilaudid) 1 mg IVPUSH Q4H PRN PRN Reason: Pain (severe 7-10) Last Admin: 12/23/16 20:56 Dose: 1 mg Sodium Chloride (Normal Saline) 500 mls @ 999 mls/hr IV .BOLUS ONE Stop: 12/23/16 12:32 Last Admin: 12/23/16 12:11 Dose: 999 mls/hr Sodium Chloride (Normal Saline) 1,000 mls @ 150 mls/hr IV ASDIRECTED [facility] Last Admin: 12/23/16 23:49 Dose: 150 mls/hr Lidocaine HCl (Xylocaine-Mpf 1%) Confirm Administered Dose 2 mls @ as directed .ROUTE .STK-MED ONE Stop: 12/24/16 06:30 Cefazolin Sodium/Dextrose 2 gm (/ Premix) 50 mls @ 100 mls/hr IV Q8H [facility] Stop: 12/25/16 07:29 Last Admin: 12/25/16 06:06 Dose: 100 mls/hr Lactated Ringer's (Ringers, Lactated) Confirm Administered Dose 1,000 mls @ as directed .ROUTE .STK-MED ONE Stop: 12/24/16 09:00 Lactated Ringer's (Ringers, Lactated) Confirm Administered Dose 1,000 mls @ as directed .ROUTE .STK-MED ONE Stop: 12/24/16 09:00 Iodine (Iodine 2% Mild Tincture) Confirm Administered Dose 30 ml .ROUTE .STK- MED ONE Stop: 12/24/16 05:46 Last Admin: 12/24/16 08:18 Dose: 18 ml Ketamine HCl (Ketalar) Confirm Administered Dose 500 mg .ROUTE .STK-MED ONE Stop: 12/24/16 06:22 Magnesium Hydroxide (Milk Of Magnesia) 30 ml PO BID PRN PRN Reason: Constipation Meperidine HCl (Demerol) 12.5 mg IVPUSH ONETIME PRN PRN Reason: Shivering Stop: 12/24/16 12:00 Metoprolol Succinate (Toprol Xl) 12.5 mg PO DAILY [facility] Last Admin: 12/26/16 08:01 Dose: Not Given Midazolam HCl (Versed 1 Mg/Ml) Confirm Administered Dose 2 mg .ROUTE .STK-MED ONE Stop: 12/24/16 06:22 Miscellaneous Information (Remove Patch) 0 ea TRDERM DAILY [facility] Last Admin: 12/26/16 08:00 Dose: 1 ea Morphine Sulfate (Duramorph Pf) Confirm Administered Dose 10 mg .ROUTE .STK-MED ONE Stop: 12/24/16 06:34 Multivitamins (Thera) 1 each PO WITHBREAKFAST [facility] Last Admin: 12/26/16 06:15 Dose: 1 each Naloxone HCl (Narcan) 0.1 mg IVPUSH Q5M PRN PRN Reason: Oversedation Stop: 12/24/16 09:16 Neomycin/Polymyxin/Bacitr/Hydrocort (Cortisporin Ophth Oint) 0 gm EYEBOTH TID PRN PRN Reason: Other Nicotine (Habitrol) 21 mg TRDERM DAILY [facility] Last Admin: 12/26/16 08:00 Dose: 21 mg Ondansetron HCl (Zofran) Confirm Administered Dose 4 mg .ROUTE .STK-MED ONE Stop: 12/24/16 06:30 Ondansetron HCl (Zofran) 4 mg IVPUSH Q6H PRN PRN Reason: Nausea/Vomiting Ondansetron HCl (Zofran) 4 mg IVPUSH ONETIME PRN PRN Reason: Nausea/Vomiting Stop: 12/24/16 12:00 Oxycodone HCl (Oxycodone) 10 mg PO ONETIME ONE Stop: 12/23/16 20:38 Last Admin: 12/23/16 20:55 Dose: 10 mg Oxycodone/Acetaminophen (Percocet 325-5 Mg) 1 - 2 tab PO Q4H PRN PRN Reason: Pain Last Admin: 12/26/16 06:15 Dose: 2 tab Phenylephrine HCl (Phenylephrine In Ns 100 Mcg/Ml) Confirm Administered Dose 1 mg .ROUTE .STK-MED ONE Stop: 12/24/16 08:09 Pneumococcal Polyvalent Vaccine (Pneumovax 23) 0.5 ml IM .ONCE ONE Stop: 12/25/16 06:47 Last Admin: 12/25/16 11:53 Dose: 0.5 ml Propofol (Diprivan 20 Ml) Confirm Administered Dose 400 mg .ROUTE .STK-MED ONE Stop: 12/24/16 06:22 Senna (Senna) 8.6 mg PO BID PRN PRN Reason: Constipation Simvastatin (Zocor) 20 mg PO DAILY [facility] Simvastatin (Zocor) 20 mg PO BEDTIME [facility] Last Admin: 12/25/16 21:09 Dose: 20 mg Spironolactone (Aldactone) 25 mg PO DAILY [facility] Last Admin: 12/26/16 08:00 Dose: 25 mg Tamsulosin HCl (Flomax) 0.4 mg PO DAILY [facility] Last Admin: 12/26/16 08:00 Dose: 0.4 mg Tranexamic Acid (Cyklokapron) Confirm Administered Dose 1,000 mg .ROUTE .STK- MED ONE Stop: 12/24/16 05:46 Last Admin: 12/24/16 08:38 Dose: 1,000 mg - Exam Wound/Incisions: dressing dry and intact General: alert, cooperative, no acute distress Lungs: Normal respiratory effort Extremities: normal pulses, no calf tenderness (Right thigh soft and nontender. Christa's negative for RLE. NVS intact for RLE.) - Problem List Review Problem List Initiated/Reviewed/Updated: Yes - My Orders Last 24 Hours: Active Orders 24 hr Category Date Time Status Ready for Discharge [RC] PER UNIT ROUTINE Care 12/26/16 06:21 Active - Assessment Assessment (Free Text/Narrative):: POD#2 - right JUVE for hx right femoral neck fx - Plan Plan (Free Text/Narrative):: 1. Discharge to Swingbed unit today. 2. 325mg ASA BID, frequent mobility, TEDs. 3. JUVE precautions. 4. Swingbed unit staff to change Mepilex next week and pt will f/u at Clinic the following week. The pt's case was discussed with Dr. Smalls.
== END 2016-12-26 08:30 | DRG 470 ==
LOC: JD.ED 11:35 → UNDOADMIN 13:32 → JD.MS 13:32
PROVIDERS: ADMIT Internal Medicine Cardiovascular Disease; ATTEND Internal Medicine Cardiovascular Disease
PROC: 0SR90JA Replacement of Right Hip Joint with Synthetic Substitute, Uncemented, Open Approach (ICD-10-PCS; principal; 2016-12-24)
DX: S72.001A Fracture of unspecified part of neck of right femur, initial encounter for closed fracture (principal); W01.0XXA Fall on same level from slipping, tripping and stumbling without subsequent striking against object, initial encounter; Y93.89 Activity, other specified; Y92.019 Unspecified place in single-family (private) house as the place of occurrence of the external cause; F17.200 Nicotine dependence, unspecified, uncomplicated; J44.9 Chronic obstructive pulmonary disease, unspecified; M21.372 Foot drop, left foot; J43.1 Panlobular emphysema; D64.9 Anemia, unspecified; Z88.8 Allergy status to other drugs, medicaments and biological substances; Z79.899 Other long term (current) drug therapy; Z79.82 Long term (current) use of aspirin; Z23 Encounter for immunization
CPT/HCPCS: 71010; 93005; 94664; 96361; 96374; 96376; 99285; J1170 ×2; J7040; 01214; 36415; 73501-26-RT; 73501-RT; 80048; 80053; 83735; 84484; 85025; 85610; 85730; 87641; 90732; 94640; 94760; 94762; 97110-GP; 97116-GP; 97161-GP; 97166-GO; 97535-GO; 99222; 99232; 99239; 99284; A9270-GY; C1776; G0009; J0171; J0690; J0697; J1650; J1885; J2250; J2270; J2405; J2704; J3010; J3490; J7120